=== PATIENT | male | born 1965 | race Caucasian/White ===

== ENCOUNTER 2019-05-09 07:15 | Inpatient (IN) | payer MEDICARE, MEDICAID ==
[~2019-05-09 07:15] MED LIST: Acetaminophen 500 MG Tab PO ONE; Gabapentin 300 MG Cap PO ONE; Scopolamine 1.5 MG Transdermal Patch TRDERM ONE
[2019-05-09] MEDS: Lactated Ringers 1,000 ML IV SCH ×3 (08:45→19:02)
[2019-05-09] MEDS ORDERED: ceFAZolin 1 GM Vial IVPUSH ONE (09:00)
[2019-05-09] MEDS ORDERED: ceFAZolin 2 GM in Sodium Chloride 0.9% 100 ML IV ONE (09:00)
[2019-05-09] MEDS ORDERED: Vancomycin 1 GM SDV ONE (09:58)
--- NOTE | 2019-05-09 11:24 | PCM.OPNOTE ---
- General Post-Op/Procedure Note Date of Surgery/Procedure: 05/09/19 Operative Procedure(s): left tka Pre Op Diagnosis: left knee primary oa Post-Op Diagnosis: Same Anesthesia Technique: Combo Spinal/Epidural Primary Surgeon: Arron Santizo [employer]s Law Professor: Sherri Santos EBL in mLs: 500 Complications: None Condition: Good
[2019-05-09] MEDS: Ropivacaine 49.25 ML, Ketorolac 30 MG, EPINEPHrine 0.5 MG, cloNIDine 80 MCG, Sodium Chl... INJECT ONE ×10 (11:39→11:42)
[2019-05-09] MEDS: Tranexamic Acid 3,000 MG, Sodium Chloride 0.9% 100 ML IRR ONE ×4 (11:43→11:44)
[2019-05-09] MEDS ORDERED: Naloxone 0.4 MG/ML SDV IVPUSH PRN (11:44)
[2019-05-09] MEDS ORDERED: diphenhydrAMINE 50 MG/ML SDV IVPUSH PRN (11:44)
[2019-05-09] MEDS ORDERED: Docusate Sodium 100 MG Cap PO PRN (11:44)
[2019-05-09] MEDS ORDERED: Magnesium Hydroxide 400 MG/5 ML Susp 30 ML Cup PO PRN (11:44)
[2019-05-09] MEDS ORDERED: Sodium Chloride 0.9% 10 ML Syringe FLUSH PRN (11:44)
[2019-05-09] MEDS ORDERED: Bisacodyl 5 MG Tab PO PRN (11:44)
[2019-05-09] MEDS ORDERED: Sennosides 8.6 MG Tab PO PRN (11:44)
[2019-05-09] MEDS ORDERED: Lactated Ringers 1,000 ML IV SCH (11:45)
--- NOTE | 2019-05-09 13:03 | PCM.CONS ---
H&P History of Present Illness - General Date of Service: 05/09/19 Admit Problem/Dx: Admission Diagnosis/Problem Admission Diagnosis/Problem Knee joint operation Source of Information: Patient, Old Records History Limitations: Reports: No Limitations - History of Present Illness Initial Comments - Free Text/Narative: This is a 53-year-old male patient that Dr. Santizo wanted a consultation regards to his chronic medical problems. He has many medical problems including history of alcohol dependence, borderline personality, cannabis abuse, smoking, asthma, hypertension, A. fib are the most critical once. Patient had a left TKA today. He has no concerns. He says his been sober for 2 months currently but he continues to smoke. He denies any fevers, chills, chest pain, shortness of breath, palpitations. He's had suicidal attempts in the past but he says he stable this time on his psych medicines. He does see psychiatry. JOSH KNEE Pain Score (Numeric/FACES): 3 - Related Data Allergies/Adverse Reactions: Allergies Allergy/AdvReac Type Severity Reaction Status Date / Time No Known Allergies Allergy Verified 05/09/19 07:47 Home Medications: Home Meds Acetaminophen [Tylenol Arthritis] 650 mg PO QID 05/08/19 [History] Budesonide/Formoterol Fumarate [Symbicort 160-4.5 Mcg Inhaler] 2 puff INH DAILY 05/08/19 [History] Cholecalciferol (Vitamin D3) [Vitamin D3] 4,000 unit PO DAILY 05/08/19 [History] Gemfibrozil [Lopid] 600 mg PO DAILY 05/08/19 [History] Glucosamine/Chondro Edge A [Glucosamine-Chondroitin Tab] 1 each PO BID 05/08/19 [ History] Levothyroxine 25 mcg PO ACBREAKFAST 05/08/19 [History] Methotrexate 20 mg PO WE 05/08/19 [History] Metoprolol Succinate [Toprol XL] 25 mg PO DAILY 05/08/19 [History] Nicotine [Nicoderm CQ] 42 mg TD DAILY 05/08/19 [History] Omeprazole 40 mg PO DAILY 05/08/19 [History] QUEtiapine [SEROquel] 100 mg PO TID 05/08/19 [History] Sertraline [Zoloft] 200 mg PO DAILY 05/08/19 [History] Tiotropium [Spiriva] 18 mcg INH DAILY 05/08/19 [History] Vitamin B Complex [B Complex] 1 each PO DAILY 05/08/19 [History] Zolpidem Tartrate [Ambien] 10 mg PO BEDTIME 05/08/19 [History] atoMOXetine [Strattera] 60 mg PO DAILY 05/08/19 [History] rOPINIRole [Requip] 1 mg PO BEDTIME 05/08/19 [History] Past Medical History Cardiovascular History: Reports: Afib, Hypertension Other Cardiovascular History: CARDIOVERSION Respiratory History: Reports: Asthma Gastrointestinal History: Reports: GERD Musculoskeletal History: Reports: Arthritis Psychiatric History: Reports: Addiction, Depression Other Psychiatric History: ALCOHOL ABUSE, ALCOHOL WITHDRAWAL, CANNABIS ABUSE Endocrine/Metabolic History: Reports: Hypokalemia, Hypomagnesemia, Hypothyroidism Other Endocrine/Metabolic History: HYPOPHOSPHATEMIA Social & Family History - Tobacco Use Smoking Status *Q: Current Every Day Smoker Years of Tobacco use: 47 Packs/Tins Daily: 0.5 - Caffeine Use Caffeine Use: Reports: Coffee, Tea - Recreational Drug Use Recreational Drug Use: Yes Recreational Drug Type: Reports: Marijuana/Hashish Recreational Drug Use Frequency: Weekly Recreational Drug Last Use: LAST WEEK H&P Review of Systems - Review of Systems: Review Of Systems: See Below General: Reports: No Symptoms HEENT: Reports: No Symptoms Pulmonary: Reports: No Symptoms Cardiovascular: Reports: No Symptoms Gastrointestinal: Reports: No Symptoms Genitourinary: Reports: No Symptoms Musculoskeletal: Reports: Joint Pain Skin: Reports: No Symptoms Psychiatric: Reports: No Symptoms Neurological: Reports: No Symptoms Hematologic/Lymphatic: Reports: No Symptoms Immunologic: Reports: No Symptoms Exam - Exam Exam: See Below - Vital Signs Vital Signs: Last Vital Signs Temp 98.7 F 05/09/19 11:28 Pulse 92 05/09/19 11:56 Resp 17 05/09/19 11:56 BP 98/62 05/09/19 11:56 Pulse Ox 95 05/09/19 11:56 Weight: 154 lb 1.65 oz - Exam General: Alert, Oriented, Cooperative HEENT: Hearing Intact, Posterior Pharynx Clear, TMs Clear Neck: Supple, Trachea Midline, 2 Lungs: Clear to Auscultation, Normal Respiratory Effort. No: Crackles, Rales, Rhonchi Cardiovascular: Regular Rate, Regular Rhythm. No: Systolic Murmur GI/Abdominal Exam: Normal Bowel Sounds, Soft, Non-Tender, No Organomegaly, No Distention, No Abnormal Bruit, No Mass Extremities: No Pedal Edema Skin: Warm, Dry, Intact Neurological: Normal Speech, Normal Tone Neuro Extensive - Mental Status: Alert, Oriented x3, Normal Mood/Affect, Normal Cognition, Memory Intact Psychiatric: Alert, Normal Affect, Normal Mood - Patient Data Lab Results Last 24 hrs: Laboratory Results - last 24 hr 05/09/19 05/09/19 Range/Units 07:50 07:50 PT 9.7 (8.7-11.1) INR 1.00 (0.89-1.13) APTT 24.5 (24.4-33.2) SECONDS Blood Type B POSITIVE Gel Antibody Screen Negative Sepsis Event Note - Focused Exam Vital Signs: Vital Signs Temp Temp Pulse Resp BP BP BP 05/09/19 11:56 92 17 98/62 05/09/19 11:50 72 14 99/72 05/09/19 11:45 93 16 92/75 05/09/19 11:42 95/73 05/09/19 11:40 99 18 95/05/09/19 11:39 95/73 05/09/19 11:35 97 12 93/70 93/70 05/09/19 11:28 98.7 F 105 H 13 93/64 05/09/19 08:02 99.0 F 60 16 135/85 Pulse Ox 05/09/19 11:56 95 05/09/19 11:50 95 05/09/19 11:45 95 05/09/19 11:42 05/09/19 11:40 96 05/09/19 11:39 05/09/19 11:35 95 05/09/19 11:28 95 05/09/19 08:02 97 Date Exam was Performed: 05/09/19 Time Exam was Performed: 12:58 Consult PN Assessment/Plan (1) S/P total knee arthroplasty SNOMED Code(s): 3782720650169, 119507315, 9218733305701 Code(s): Z96.659 - PRESENCE OF UNSPECIFIED ARTIFICIAL KNEE JOINT Current Visit: Yes (2) Atrial fibrillation SNOMED Code(s): 01464580 Code(s): I48.91 - UNSPECIFIED ATRIAL FIBRILLATION Current Visit: Yes (3) Hypertension SNOMED Code(s): 53055601 Code(s): I10 - ESSENTIAL (PRIMARY) HYPERTENSION Current Visit: Yes (4) History of alcohol dependence SNOMED Code(s): 255070081 Code(s): F10.21 - ALCOHOL DEPENDENCE, IN REMISSION Current Visit: Yes (5) Depression SNOMED Code(s): 85309604 Code(s): F32.9 - MAJOR DEPRESSIVE DISORDER, SINGLE EPISODE, UNSPECIFIED Current Visit: Yes (6) Asthma SNOMED Code(s): 225376745 Code(s): J45.909 - UNSPECIFIED ASTHMA, UNCOMPLICATED Current Visit: Yes Problem List Initiated/Reviewed/Updated: Yes Plan: 1. I will follow along and watch his blood pressure, asthma, A. fib and depression. 2. Psych medications are only ordered which is a good thing. 3. Incentive spirometry and good pulmonary toilet. 4. Continue his antihypertensive medications. 5. Patient states she's been sober for 4 months. But we'll still watch for any signs of withdrawal.
--- NOTE | 2019-05-09 13:13 | OR ---
DATE OF OPERATION: 05/09/2019 SURGEON: Arron Santizo DO PREOPERATIVE DIAGNOSIS: Left knee primary osteoarthritis. POSTOPERATIVE DIAGNOSIS: Left knee primary osteoarthritis. PROCEDURE: Left knee total knee arthroplasty. HVAC MAINTENANCE TECHNICIAN: Sherri Santos NP. Nurse practitioner, Sherri Santos NP, played an essential role in assisting in this case, helping to position the patient, retract structures as needed, as well as suturing and cutting sutures as indicated. Her presence improved patient's safety and decreased operative time. ANESTHESIA: Spinal plus conscious sedation. FLUID: Lactated Ringer solution. ESTIMATED BLOOD LOSS: 500 mL. COMPLICATIONS: None. SPECIMEN: None. DISCHARGE DISPOSITION: Stable to PACU. INSTRUMENTATION: DePuy size 7 femur; size 7 tibia; size 7, 5 mm polyethylene tibial insert; and 38 mm polyethylene patella. HISTORY AND INDICATIONS FOR THE PROCEDURE: The patient was seen preoperatively in [place]. He had failed years of nonoperative treatment and was in extreme pain. Preoperative imaging confirmed the above-mentioned diagnosis. Risks and benefits of procedure explained to the patient. Informed consent was obtained. DETAILS OF PROCEDURE: The patient was seen preoperatively by myself and the Anesthesia staff in the preoperative holding area where the operative site was marked. He was brought to the operative suite by Anesthesia staff where a spinal sedation was administered plus conscious sedation. All extremities were found to be well padded. A well-padded tourniquet was placed onto his left thigh. The left lower extremity was then prepped and draped in a sterile manner. Time-out was called identifying the correct patient, correct procedure, and the correct site and antibiotics had begun within appropriate period of time. The left lower extremity was exsanguinated. Tourniquet was raised to 250 mmHg and taken down at 41 minutes during cementing. The midline incision was made from tibial tubercle to 3 fingerbreadths proximal to the patella. The medial parapatellar arthrotomy was then made. The medial proximal tibia was exposed using Bovie electrocautery. Hemostasis was obtained using Bovie electrocautery during the case. A full synovectomy was performed. The patella was everted and the knee flexed. We then removed any infrapatellar fat pad remaining and then made two perpendicular saw cuts along the patella and this measured a 38 in extension and then we did 3 lug holes and then placed the patella trial. We then flexed the knee again and then reamed the distal femur and then put an intramedullary medullary guide in a 3 degree valgus, 9 mm distal cut, pinned this in place and then made our distal cut to remove the guide. I then used the posterior condylar guide with the knee hyperflexed. This measured a 7. I pinned this in place, removed the guide, and then put the chamfer block over my pins and held it in place with 2 extra threaded pins. We then made our anterior- posterior chamfer cuts and then removed our chamfer block. I then used my notch guide anteriorly and then used a rasp to conform the femur. I then removed the anterior portion of the medial and lateral meniscus and the anterior cruciate ligament, and then using a posterior blunt Hohmann and 2 sharp Hohmann to protect the medial collateral ligaments, anteriorized the tibia, and then used an extramedullary guide in line with the tibial spine and second metatarsal for my tibial cut. I pinned this in place and then made my proximal tibial cut. I then removed the bone and then removed my guide. I then used a laminar collections attorney in flexion and then removed the posterior portion of the medial and lateral meniscus as well as posterior osteophytes. After this had been accomplished, we then anteriorized the tibia again and protected all our structures with Hohmann and placed a 7 baseplate on. We placed the tower on and then reamed and tamped the baseplate into place. I then placed my femur and then drilled the lugs. I then inserted a size 7, 5 mm polyethylene trial. This provided excellent stability throughout range of motion with no mid flexion instability. We then removed all of our components, copiously irrigated with saline, dried with laps and then cemented our components in place in full extension with size 7, 5 mm polyethylene trial in slightly internal rotation. It was obvious that this patient was going to bleed. I did expect this and this was entirely all small bleeders. His platelets were good as well as hemoglobin, but as he does have a history of long-term alcoholism and I believe this may have contributed to the bleeding. I packed this with laps a few times and then applied Avitene which did slow the bleeding significantly, so I applied FloSeal to the back and then 4 packets of Avitene and then compressed this for 5 minutes with sterile Antoni wrap. This significantly decreased the bleeding. I bovied the posterior medial and posterior lateral corner where there are typically more bleeding. I then removed any extra cement and then placed my final polyethylene size 7, 5 mm in the baseplate. This provided excellent range of motion and stability. I then irrigated again with pulse lavage irrigation and inspected for any bleeders. Then, I applied 2 packets of Avitene to the posterior lateral corners and then closed the parapatellar arthrotomy with two #5 Ethibond [id number] sutures followed by #2 Stratafix closure in a watertight manner. I then irrigated again with Betadine infused irrigation and then applied 1 g of vancomycin subcutaneously and then used 0 Stratafix to close the subcutaneous layer. We then applied skin ankur. We then applied a dressing, which was a Betadine-soaked Adaptic, fluffs, ABD, and tightly wrapped Antoni wrap. The patient was allowed to awaken from conscious sedation and taken to the PACU in stable condition. /[id number] 1302 BS/MODL
[2019-05-09] MEDS ORDERED: Phenylephrine 1% 10 MG/ML SDV IV ONE ×2 (13:14→13:55)
[2019-05-09] MEDS ORDERED: Sodium Chloride 0.9% 500 ML IV SCH (13:15)
[2019-05-09] MEDS ORDERED: Lactated Ringers 500 ML IV SCH (13:30)
[2019-05-09] MEDS: Nicotine 21 MG/24 Hr Patch TOP SCH (13:37)
[2019-05-09] MEDS: Acetaminophen 650 MG Tab.ER PO SCH ×3 (13:40→20:37)
[2019-05-09] MEDS: QUEtiapine 100 MG Tab PO SCH ×2 (13:50→20:36)
[2019-05-09] MEDS ORDERED: Ketamine 500 mg/10 ML MDV IV ONE (13:55)
[2019-05-09] MEDS ORDERED: Propofol 200 MG/20 ML SDV IV ONE (13:55)
[2019-05-09] MEDS ORDERED: ePHEDrine 50 MG/ML SDV IV ONE (13:55)
[2019-05-09] MEDS ORDERED: Lactated Ringers 1,000 ML IV ONE (13:55)
[2019-05-09] MEDS ORDERED: Midazolam 1 MG/ML 2 ML SDV IV ONE (13:55)
[2019-05-09] MEDS ORDERED: Ropivacaine 0.5% 5 MG/ML 20 ML SDV INJECT ONE (13:55)
--- NOTE | 2019-05-09 14:54 | CR ---
INDICATION: Post-op total left arthroplasty. LEFT KNEE: Frontal and lateral views of the left knee were obtained 05/09/19 - no comparisons available at time of dictation. Metallic clips are noted anteriorly for skin closure. Total knee arthroplasty components appear to be in good position and alignment, without evidence of a complicating process. MTDD
--- NOTE | 2019-05-09 14:56 | US ---
INDICATION: Left adductor nerve block. ULTRASOUND/RFA GUIDANCE: 2-D real-time ultrasonic imaging was utilized for left adductor nerve block placement. [facility]
[2019-05-09] MEDS: Acetaminophen/oxyCODONE 325-5 MG Tab PO PRN ×2 (15:50→20:46)
[2019-05-09] MEDS: Morphine 2 MG/ML SYRINGE IVPUSH PRN (19:07)
[2019-05-09] MEDS: rOPINIRole 1 MG Tab PO SCH (20:35)
[2019-05-09] MEDS: Zolpidem 5 MG Tab PO PRN (20:45)
[2019-05-10] MEDS: Acetaminophen/oxyCODONE 325-5 MG Tab PO PRN ×6 (00:44→21:43)
[2019-05-10] MEDS: traMADol 50 MG Tab PO PRN (02:06)
[2019-05-10] MEDS: Morphine 2 MG/ML SYRINGE IVPUSH PRN ×3 (03:08→16:58)
[2019-05-10] MEDS ORDERED: Methotrexate 2.5 MG Tab PO SCH (08:00)
--- NOTE | 2019-05-10 08:12 | PCM.PN ---
- General Info Date of Service: 05/10/19 Admission Dx/Problem (Free Text): Patient states that he coughs a little bit this morning. He always does after he is a cigarette. He says his left knee is hurting. He has some numbness the left tibia area which is new. Nice fevers or chills. - Patient Data Vitals - Most Recent: Last Vital Signs Temp 99.3 F 05/10/19 05:00 Pulse 106 H 05/10/19 05:00 Resp 20 05/10/19 05:00 BP 111/76 05/10/19 05:00 Pulse Ox 97 05/10/19 05:00 Weight - Most Recent: 154 lb 1.65 oz I&O - Last 24 Hours: Intake & Output 05/09/19 05/10/19 05/10/19 22:59 06:59 14:59 Intake Total 2309 1272 Output Total 450 200 Balance 1859 1072 Lab Results Last 24 Hours: Laboratory Results - last 24 hr 05/09/19 05/09/19 05/10/19 Range/Units 07:50 07:50 06:16 WBC (4.5-12.0) X10-3/uL RBC (4.30-5.75) x10(6)uL Hgb (13.5-17.8) g/dL Hct (30.0-51.3) % MCV (80-96) fL MCH (27.7-33.6) pg MCHC (32.2-35.4) g/dL RDW (11.5-15.5) % Plt Count (125-369) X10(3)uL MPV (7.4-10.4) fL Neut % (Auto) (46-82) % Lymph % (Auto) (13-37) % [place] % (Auto) (4-12) % Eos % (Auto) (1.0-5.0) % Baso % (Auto) (0-2) % Neut # (Auto) (1.6-8.3) # Lymph # (Auto) (0.6-5.0) # [place] # (Auto) (0.0-1.3) # Eos # (Auto) (0.0-0.8) # Baso # (Auto) (0.0-0.2) # PT 9.7 10.5 (8.7-11.1) INR 1.00 1.08 (0.89-1.13) APTT 24.5 24.6 (24.4-33.2) SECONDS Sodium (135-145) mmol/L Potassium (3.5-5.3) mmol/L Chloride (100-110) mmol/L Carbon Dioxide (21-32) mmol/L BUN (7-18) mg/dL Creatinine (0.70-1.30) mg/dL Est Cr Clr Drug Dosing mL/min Estimated GFR (MDRD) (>60) BUN/Creatinine Ratio (9-20) Glucose (80-116) mg/dL Calcium (8.6-10.2) mg/dL Total Bilirubin (0.1-1.3) mg/dL AST (5-25) IU/L ALT (12-36) U/L Alkaline Phosphatase (56-112) IU/L Total Protein (6.0-8.0) g/dL Albumin (3.5-5.2) g/dL Globulin g/dL Albumin/Globulin Ratio Blood Type B POSITIVE Gel Antibody Screen Negative 05/10/19 05/10/19 Range/Units 06:16 06:16 WBC 8.6 (4.5-12.0) X10-3/uL RBC 2.78 L (4.30-5.75) x10(6)uL Hgb 7.7 L (13.5-17.8) g/dL Hct 23.8 L (30.0-51.3) % MCV 85.7 (80-96) fL MCH 27.8 (27.7-33.6) pg MCHC 32.5 (32.2-35.4) g/dL RDW 18.2 H (11.5-15.5) % Plt Count 168 (125-369) X10(3)uL MPV 8.4 (7.4-10.4) fL Neut % (Auto) 73.7 (46-82) % Lymph % (Auto) 16.1 (13-37) % [place] % (Auto) 8.1 (4-12) % Eos % (Auto) 2 (1.0-5.0) % Baso % (Auto) 0 (0-2) % Neut # (Auto) 6.4 (1.6-8.3) # Lymph # (Auto) 1.4 (0.6-5.0) # [place] # (Auto) 0.7 (0.0-1.3) # Eos # (Auto) 0.1 (0.0-0.8) # Baso # (Auto) 0.0 (0.0-0.2) # PT (8.7-11.1) INR (0.89-1.13) APTT (24.4-33.2) SECONDS Sodium 141 (135-145) mmol/L Potassium 4.0 (3.5-5.3) mmol/L Chloride 109 (100-110) mmol/L Carbon Dioxide 27 (21-32) mmol/L BUN 16 (7-18) mg/dL Creatinine 0.7 (0.70-1.30) mg/dL Est Cr Clr Drug Dosing 115.36 mL/min Estimated GFR (MDRD) > 60 (>60) BUN/Creatinine Ratio 22.9 H (9-20) Glucose 111 (80-116) mg/dL Calcium 8.3 L (8.6-10.2) mg/dL Total Bilirubin 0.3 (0.1-1.3) mg/dL AST 19 (5-25) IU/L ALT 15 (12-36) U/L Alkaline Phosphatase 74 (56-112) IU/L Total Protein 5.3 L (6.0-8.0) g/dL Albumin 2.7 L (3.5-5.2) g/dL Globulin 2.6 g/dL Albumin/Globulin Ratio 1.0 Blood Type Gel Antibody Screen Med Orders - Current: Current Medications Acetaminophen (Tylenol Arthritis Pain) 650 mg PO QID [facility] Last Admin: 05/09/19 20:37 Dose: 650 mg Aspirin (Ecotrin) 325 mg PO DAILY [facility] Bisacodyl (Dulcolax) 10 mg PO DAILY PRN PRN Reason: Constipation Cholecalciferol (Vitamin D3) 100 mcg PO DAILY [facility] Diazepam (Valium) 5 mg IVPUSH Q6H PRN PRN Reason: Spasms Diphenhydramine HCl (Benadryl) 25 mg IVPUSH Q4H PRN PRN Reason: Itching Docusate Sodium (Colace) 100 mg PO BID PRN PRN Reason: Constipation Gemfibrozil (Lopid) 600 mg PO DAILY [facility] Glucosamine/Chondroitin (Glucosamine-Chondroitin 500-400 Capsule) 1 cap PO BID [facility] Lactated Ringer's (Ringers, Lactated) 1,000 mls @ 125 mls/hr IV ASDIRECTED [facility] Last Admin: 05/09/19 19:02 Dose: 125 mls/hr Lactated Ringer's (Ringers, Lactated) 1,000 mls @ 125 mls/hr IV ASDIRECTED [facility] Last Admin: 05/10/19 02:34 Dose: 125 mls/hr Lactated Ringer's (Ringers, Lactated) 500 mls @ 250 mls/hr IV BOLUS [facility] Levothyroxine Sodium (Levothyroxine) 25 mcg PO ACBREAKFAST [facility] Magnesium Hydroxide (Milk Of Magnesia) 30 ml PO BID PRN PRN Reason: Constipation Methotrexate (Methotrexate) 20 mg PO WE [facility] Metoprolol Succinate (Toprol Xl) 25 mg PO DAILY [facility] Mometasone Furoate/Formoterol Fumar (Dulera 200-5 Mcg) 2 puff IH DAILY [facility] Morphine Sulfate (Morphine) 2 mg IVPUSH Q2H PRN PRN Reason: Breakthrough Pain Last Admin: 05/10/19 03:08 Dose: 2 mg Multivitamins (Total B With C) 1 each PO DAILY [facility] Naloxone HCl (Narcan) 0.1 mg IVPUSH ONETIME PRN PRN Reason: Oversedation Nicotine (Habitrol) 21 mg TOP DAILY [facility] Last Admin: 05/09/19 13:37 Dose: 21 mg Non-Formulary Medication (Atomoxetine [Strattera]) 60 mg PO DAILY [facility] Ondansetron HCl (Zofran) 4 mg IVPUSH Q4H PRN PRN Reason: Nausea/Vomiting Oxycodone/Acetaminophen (Percocet 325-5 Mg) 2 tab PO Q4H PRN PRN Reason: Pain (moderate 4-6) Last Admin: 05/10/19 04:55 Dose: 2 tab Pantoprazole Sodium (Protonix) 40 mg PO DAILY [facility] Quetiapine Fumarate (Seroquel) 100 mg PO TID [facility] Last Admin: 05/09/19 20:36 Dose: 100 mg Ropinirole HCl (Requip) 1 mg PO BEDTIME [facility] Last Admin: 05/09/19 20:35 Dose: 1 mg Senna (Senna) 8.6 mg PO BID PRN PRN Reason: Constipation Sertraline HCl (Zoloft) 200 mg PO DAILY [facility] Sodium Chloride (Saline Flush) 10 ml FLUSH ASDIRECTED PRN PRN Reason: Keep Vein Open Sodium Chloride (Saline Flush) 10 ml FLUSH ASDIRECTED PRN PRN Reason: Keep Vein Open Tiotropium [place] (Spiriva Handihaler) 0 mcg INH DAILY [facility]OMY Tramadol HCl (Ultram) 100 mg PO Q6H PRN PRN Reason: Pain (mild 1-3) Last Admin: 05/10/19 02:06 Dose: 100 mg Zolpidem Tartrate (Ambien) 5 mg PO BEDTIME PRN PRN Reason: Sleep Last Admin: 05/09/19 20:45 Dose: 5 mg Discontinued Medications Acetaminophen (Tylenol Extra Strength) 1,000 mg PO ONETIME ONE Stop: 05/09/19 07:16 Last Admin: 05/09/19 08:36 Dose: 1,000 mg Cefazolin Sodium (Ancef) 1 gm IVPUSH ONETIME ONE Stop: 05/09/19 09:01 Last Admin: 05/09/19 08:49 Dose: 1 gm Ropivacaine 49.25 ml/Ketorolac Tromethamine 30 mg/Epinephrine HCl 0.5 mg/ Clonidine HCl 80 mcg/ Sodium Chloride 48.45 ml 0 ml INJECT ASDIRECTED ONE Stop: 05/09/19 09:01 Last Admin: 05/09/19 11:42 Dose: 100 syringe Tranexamic Acid 3,000 mg/ (Sodium Chloride 100 ml) 0 mg IRR ONETIME ONE Stop: 05/09/19 09:01 Last Admin: 05/09/19 11:44 Dose: 100 irr Gabapentin (Neurontin) 300 mg PO ONETIME ONE Stop: 05/09/19 07:16 Last Admin: 05/09/19 08:36 Dose: 300 mg Scopolamine (Transderm-Scop) 1.5 mg TRDERM ONETIME ONE Stop: 05/09/19 07:16 Last Admin: 05/09/19 08:36 Dose: 1.5 mg Vancomycin HCl (Vancomycin) 1 gm .XX .STK-MED ONE Stop: 05/09/19 09:59 Last Admin: 05/09/19 09:58 Dose: 1 gm - Exam General: Alert, Oriented, Cooperative Lungs: Clear to Auscultation, Normal Respiratory Effort Cardiovascular: Regular Rate, Regular Rhythm, No Murmurs Sepsis Event Note - Evaluation Sepsis Screening Result: No Definite Risk - Focused Exam Vital Signs: Vital Signs Temp Pulse Resp BP Pulse Ox 05/10/19 05:00 99.3 F 106 H 20 111/76 97 05/10/19 01:00 99.1 F 78 20 93/61 98 05/09/19 22:30 98.6 F 80 18 106/63 97 Date Exam was Performed: 05/10/19 Time Exam was Performed: 08:10 - Problem List & Annotations (1) S/P total knee arthroplasty SNOMED Code(s): 0770357758508, 890783825, 2177421712589 Code(s): Z96.659 - PRESENCE OF UNSPECIFIED ARTIFICIAL KNEE JOINT Status: Acute Current Visit: Yes (2) Atrial fibrillation SNOMED Code(s): 11431891 Code(s): I48.91 - UNSPECIFIED ATRIAL FIBRILLATION Status: Acute Current Visit: Yes (3) Hypertension SNOMED Code(s): 37228681 Code(s): I10 - ESSENTIAL (PRIMARY) HYPERTENSION Status: Acute Current Visit: Yes (4) History of alcohol dependence SNOMED Code(s): 578672230 Code(s): F10.21 - ALCOHOL DEPENDENCE, IN REMISSION Status: Acute Current Visit: Yes (5) Depression SNOMED Code(s): 27686128 Code(s): F32.9 - MAJOR DEPRESSIVE DISORDER, SINGLE EPISODE, UNSPECIFIED Status: Acute Current Visit: Yes (6) Asthma SNOMED Code(s): 342793307 Code(s): J45.909 - UNSPECIFIED ASTHMA, UNCOMPLICATED Status: Acute Current Visit: Yes - Problem List Review Problem List Initiated/Reviewed/Updated: Yes - My Orders Last 24 Hours: My Active Orders 05/09/19 13:30 Lactated Ringers [Ringers, Lactated] 500 ml IV BOLUS - Assessment Assessment:: 1. From a cardiac and pulmonary standpoint the patient is doing well. 2. Continue follow along until the patient is discharged. 3. I told the patient to discuss any pain and numbness with Dr. Santizo his orthopedic surgeon.
[2019-05-10] MEDS: Levothyroxine 25 MCG Tab PO SCH (08:47)
[2019-05-10] MEDS: Gemfibrozil 600 MG Tab PO SCH (08:48)
[2019-05-10] MEDS: Pantoprazole 40 MG Tab.CR PO SCH (08:48)
[2019-05-10] MEDS: Chondroitin/Glucosamine Cap PO SCH ×2 (08:48→21:38)
[2019-05-10] MEDS: Sertraline 100 MG Tab PO SCH (08:48)
[2019-05-10] MEDS: QUEtiapine 100 MG Tab PO SCH ×3 (08:48→21:42)
[2019-05-10] MEDS: Aspirin 325 MG Tab.EC PO SCH (08:48)
[2019-05-10] MEDS: Cholecalciferol (Vitamin D3) 25 MCG Tab PO SCH (08:49)
[2019-05-10] MEDS: Nicotine 21 MG/24 Hr Patch TOP SCH (08:49)
[2019-05-10] MEDS: Acetaminophen 650 MG Tab.ER PO SCH ×4 (08:49→21:42)
[2019-05-10] MEDS: Formoterol/Mometasone 200-5 MCG 8.8 GM Inhaler IH SCH (08:49)
[2019-05-10] MEDS: Tiotropium Inhaler 18 MCG Inhalation Powder Cap Kit of 5 INH SCH (08:50)
[2019-05-10] MEDS: Metoprolol Succinate 25 MG Tab.ER PO SCH (08:50)
[2019-05-10] MEDS: Vitamin B Complex with Vitamin C Tab PO SCH (08:50)
[2019-05-10] MEDS ORDERED: Non-Formulary Medication 1 Each (Omeprazole [Omeprazole] 40 MG) PO SCH (09:00)
[2019-05-10] MEDS ORDERED: Non-Formulary Medication 1 Each (Budesonide/Formoterol Fumarate [Symbicort 160-4.5 Mcg Inh INH SCH (09:00)
[2019-05-10] MEDS: Sodium Chloride 0.9% 10 ML Syringe FLUSH PRN ×2 (10:15→11:25)
--- NOTE | 2019-05-10 10:29 | PCM.PN ---
- General Info Date of Service: 05/10/19 Admission Dx/Problem (Free Text): Patient states that he coughs a little bit this morning. He always does after he is a cigarette. He says his left knee is hurting. He has some numbness the left tibia area which is new. Nice fevers or chills. Subjective Update: Patient states his pain has not been well controlled so far. He has been up walking and thinks that has been going well. Has no other complaints today. Pain Score: 7 - Review of Systems General: Reports: No Symptoms Pulmonary: Reports: No Symptoms Cardiovascular: Reports: No Symptoms Gastrointestinal: Reports: No Symptoms Skin: Reports: No Symptoms Neurological: Reports: Numbness (Decreased sensation to soft touch along the anterior lower left leg (mckenna), is able to feel sharp stimuli to this area) Psychiatric: Reports: No Symptoms - Patient Data Vitals - Most Recent: Last Vital Signs Temp 37.4 C 05/10/19 05:00 Pulse 92 05/10/19 08:50 Resp 20 05/10/19 05:00 BP 117/73 05/10/19 08:50 Pulse Ox 97 05/10/19 05:00 Weight - Most Recent: 69.9 kg I&O - Last 24 Hours: Intake & Output 05/09/19 05/10/19 05/10/19 22:59 06:59 14:59 Intake Total 2309 1272 Output Total 450 200 Balance 1859 1072 Lab Results Last 24 Hours: Laboratory Results - last 24 hr 05/10/19 05/10/19 05/10/19 Range/Units 06:16 06:16 06:16 WBC 8.6 (4.5-12.0) X10-3/uL RBC 2.78 L (4.30-5.75) x10(6)uL Hgb 7.7 L (13.5-17.8) g/dL Hct 23.8 L (30.0-51.3) % MCV 85.7 (80-96) fL MCH 27.8 (27.7-33.6) pg MCHC 32.5 (32.2-35.4) g/dL RDW 18.2 H (11.5-15.5) % Plt Count 168 (125-369) X10(3)uL MPV 8.4 (7.4-10.4) fL Neut % (Auto) 73.7 (46-82) % Lymph % (Auto) 16.1 (13-37) % Vigo % (Auto) 8.1 (4-12) % Eos % (Auto) 2 (1.0-5.0) % Baso % (Auto) 0 (0-2) % Neut # (Auto) 6.4 (1.6-8.3) # Lymph # (Auto) 1.4 (0.6-5.0) # Vigo # (Auto) 0.7 (0.0-1.3) # Eos # (Auto) 0.1 (0.0-0.8) # Baso # (Auto) 0.0 (0.0-0.2) # PT 10.5 (8.7-11.1) INR 1.08 (0.89-1.13) APTT 24.6 (24.4-33.2) SECONDS Sodium 141 (135-145) mmol/L Potassium 4.0 (3.5-5.3) mmol/L Chloride 109 (100-110) mmol/L Carbon Dioxide 27 (21-32) mmol/L BUN 16 (7-18) mg/dL Creatinine 0.7 (0.70-1.30) mg/dL Est Cr Clr Drug Dosing 115.36 mL/min Estimated GFR (MDRD) > 60 (>60) BUN/Creatinine Ratio 22.9 H (9-20) Glucose 111 (80-116) mg/dL Calcium 8.3 L (8.6-10.2) mg/dL Total Bilirubin 0.3 (0.1-1.3) mg/dL AST 19 (5-25) IU/L ALT 15 (12-36) U/L Alkaline Phosphatase 74 (56-112) IU/L Total Protein 5.3 L (6.0-8.0) g/dL Albumin 2.7 L (3.5-5.2) g/dL Globulin 2.6 g/dL Albumin/Globulin Ratio 1.0 Med Orders - Current: Current Medications Acetaminophen (Tylenol Arthritis Pain) 650 mg PO QID PENDING SALE TO [facility] Last Admin: 05/10/19 08:49 Dose: 650 mg Aspirin (Ecotrin) 325 mg PO DAILY PENDING SALE TO [facility] Last Admin: 05/10/19 08:48 Dose: 325 mg Atomoxetine HCl (Strattera) 60 mg PO DAILY PENDING SALE TO [facility] Bisacodyl (Dulcolax) 10 mg PO DAILY PRN PRN Reason: Constipation Cholecalciferol (Vitamin D3) 100 mcg PO DAILY PENDING SALE TO [facility] Last Admin: 05/10/19 08:49 Dose: 100 mcg Diazepam (Valium) 5 mg IVPUSH Q6H PRN PRN Reason: Spasms Diphenhydramine HCl (Benadryl) 25 mg IVPUSH Q4H PRN PRN Reason: Itching Docusate Sodium (Colace) 100 mg PO BID PRN PRN Reason: Constipation Gemfibrozil (Lopid) 600 mg PO DAILY PENDING SALE TO [facility] Last Admin: 05/10/19 08:48 Dose: 600 mg Glucosamine/Chondroitin (Glucosamine-Chondroitin 500-400 Capsule) 1 cap PO BID PENDING SALE TO [facility] Last Admin: 05/10/19 08:48 Dose: 1 cap Lactated Ringer's (Ringers, Lactated) 1,000 mls @ 125 mls/hr IV ASDIRECTED PENDING SALE TO [facility] Last Admin: 05/09/19 19:02 Dose: 125 mls/hr Lactated Ringer's (Ringers, Lactated) 1,000 mls @ 75 mls/hr IV ASDIRECTED PENDING SALE TO [facility] Levothyroxine Sodium (Levothyroxine) 25 mcg PO ACBREAKFAST PENDING SALE TO [facility] Last Admin: 05/10/19 08:47 Dose: 25 mcg Magnesium Hydroxide (Milk Of Magnesia) 30 ml PO BID PRN PRN Reason: Constipation Methotrexate (Methotrexate) 20 mg PO WE PENDING SALE TO [facility] Last Admin: 05/10/19 08:47 Dose: 20 mg Metoprolol Succinate (Toprol Xl) 25 mg PO DAILY PENDING SALE TO [facility] Last Admin: 05/10/19 08:50 Dose: 25 mg Mometasone Furoate/Formoterol Fumar (Dulera 200-5 Mcg) 2 puff IH DAILY PENDING SALE TO [facility] Last Admin: 05/10/19 08:49 Dose: 2 puff Morphine Sulfate (Morphine) 2 mg IVPUSH Q2H PRN PRN Reason: Breakthrough Pain Last Admin: 05/10/19 03:08 Dose: 2 mg Multivitamins (Total B With C) 1 each PO DAILY PENDING SALE TO [facility] Last Admin: 05/10/19 08:50 Dose: 1 each Naloxone HCl (Narcan) 0.1 mg IVPUSH ONETIME PRN PRN Reason: Oversedation Nicotine (Habitrol) 21 mg TOP DAILY PENDING SALE TO [facility] Last Admin: 05/10/19 08:49 Dose: 21 mg Ondansetron HCl (Zofran) 4 mg IVPUSH Q4H PRN PRN Reason: Nausea/Vomiting Oxycodone/Acetaminophen (Percocet 325-5 Mg) 2 tab PO Q4H PRN PRN Reason: Pain (moderate 4-6) Last Admin: 05/10/19 09:10 Dose: 2 tab Pantoprazole Sodium (Protonix) 40 mg PO DAILY PENDING SALE TO [facility] Last Admin: 05/10/19 08:48 Dose: 40 mg Quetiapine Fumarate (Seroquel) 100 mg PO TID PENDING SALE TO [facility] Last Admin: 05/10/19 08:48 Dose: 100 mg Ropinirole HCl (Requip) 1 mg PO BEDTIME PENDING SALE TO [facility] Last Admin: 05/09/19 20:35 Dose: 1 mg Senna (Senna) 8.6 mg PO BID PRN PRN Reason: Constipation Sertraline HCl (Zoloft) 200 mg PO DAILY PENDING SALE TO [facility] Last Admin: 05/10/19 08:48 Dose: 200 mg Sodium Chloride (Saline Flush) 10 ml FLUSH ASDIRECTED PRN PRN Reason: Keep Vein Open Sodium Chloride (Saline Flush) 10 ml FLUSH ASDIRECTED PRN PRN Reason: Keep Vein Open Tiotropium [place] (Spiriva Handihaler) 0 mcg INH DAILY PENDING SALE TO [facility] Last Admin: 05/10/19 08:50 Dose: 1 cap Tramadol HCl (Ultram) 100 mg PO Q6H PRN PRN Reason: Pain (mild 1-3) Last Admin: 05/10/19 02:06 Dose: 100 mg Zolpidem Tartrate (Ambien) 5 mg PO BEDTIME PRN PRN Reason: Sleep Last Admin: 05/09/19 20:45 Dose: 5 mg Discontinued Medications Acetaminophen (Tylenol Extra Strength) 1,000 mg PO ONETIME ONE Stop: 05/09/19 07:16 Last Admin: 05/09/19 08:36 Dose: 1,000 mg Cefazolin Sodium (Ancef) 1 gm IVPUSH ONETIME ONE Stop: 05/09/19 09:01 Last Admin: 05/09/19 08:49 Dose: 1 gm Ropivacaine 49.25 ml/Ketorolac Tromethamine 30 mg/Epinephrine HCl 0.5 mg/ Clonidine HCl 80 mcg/ Sodium Chloride 48.45 ml 0 ml INJECT ASDIRECTED ONE Stop: 05/09/19 09:01 Last Admin: 05/09/19 11:42 Dose: 100 syringe Tranexamic Acid 3,000 mg/ (Sodium Chloride 100 ml) 0 mg IRR ONETIME ONE Stop: 05/09/19 09:01 Last Admin: 05/09/19 11:44 Dose: 100 irr Gabapentin (Neurontin) 300 mg PO ONETIME ONE Stop: 05/09/19 07:16 Last Admin: 05/09/19 08:36 Dose: 300 mg Lactated Ringer's (Ringers, Lactated) 1,000 mls @ 125 mls/hr IV ASDIRECTED NAOMY Last Admin: 05/10/19 02:34 Dose: 125 mls/hr Lactated Ringer's (Ringers, Lactated) 500 mls @ 250 mls/hr IV BOLUS NAOMY Scopolamine (Transderm-Scop) 1.5 mg TRDERM ONETIME ONE Stop: 05/09/19 07:16 Last Admin: 05/09/19 08:36 Dose: 1.5 mg Vancomycin HCl (Vancomycin) 1 gm .XX .STK-MED ONE Stop: 05/09/19 09:59 Last Admin: 05/09/19 09:58 Dose: 1 gm - Exam General: Alert, Oriented, Cooperative, No Acute Distress Lungs: Normal Respiratory Effort Cardiovascular: Regular Rate, Regular Rhythm Extremities: Other (Normal inspection and range of motion to right leg; post-op pain to left knee, tenderness to soft tissue of distal thigh, minimal swelling under MARTHA wrap and moderate drainage. Range of motion and strength to foot and ankle on the left is strong and WNL.) Peripheral Pulses: 1+: Posterior Tibial (L), 2+: Dorsalis Pedis (L) Skin: Warm, Dry, Intact (incision looks good, without erythema or swelling; bloody drainage pattern is mostly from distal aspect of incision) Neurological: Other (sensation altered, but intact to left lower extremity) Psy/Mental Status: Alert, Normal Affect, Normal Mood Sepsis Event Note - Evaluation Sepsis Screening Result: No Definite Risk - Focused Exam Vital Signs: Vital Signs Temp Pulse Pulse Resp BP BP Pulse Ox 05/10/19 08:50 92 117/73 05/10/19 05:00 37.4 C 106 H 20 111/76 97 05/10/19 01:00 37.3 C 78 20 93/61 98 05/09/19 22:30 37.0 C 80 18 106/63 97 Date Exam was Performed: 05/10/19 Time Exam was Performed: 12:25 - Problem List & Annotations (1) S/P total knee arthroplasty SNOMED Code(s): 5314692826301, 839186879, 1442606143052 Code(s): Z96.659 - PRESENCE OF UNSPECIFIED ARTIFICIAL KNEE JOINT Status: Acute Priority: High Current Visit: Yes Onset Date: ~05/09/19 Qualifiers: Laterality: left Qualified Code(s): Z96.652 - Presence of left artificial knee joint - Problem List Review Problem List Initiated/Reviewed/Updated: Yes - My Orders Last 24 Hours: My Active Orders 05/09/19 11:44 Antiembolic Devices [RC] .Routine Acetaminophen/oxyCODONE [Percocet 325-5 MG] 2 tab PO Q4H PRN Docusate Sodium [Colace] 100 mg PO BID PRN Magnesium Hydroxide [Milk of Magnesia] 30 ml PO BID PRN Morphine 2 mg IVPUSH Q2H PRN Naloxone [Narcan] 0.1 mg IVPUSH ONETIME PRN Ondansetron [Zofran] 4 mg IVPUSH Q4H PRN Sennosides [Senna] 8.6 mg PO BID PRN Sodium Chloride 0.9% [Saline Flush] 10 ml FLUSH ASDIRECTED PRN Zolpidem [Ambien] 5 mg PO BEDTIME PRN bisacodyL [Dulcolax] 10 mg PO DAILY PRN diazePAM [Valium] 5 mg IVPUSH Q6H PRN diphenhydrAMINE [Benadryl] 25 mg IVPUSH Q4H PRN traMADol [Ultram] 100 mg PO Q6H PRN 05/09/19 11:45 Patient Status [ADT] Routine Ambulate [RC] ASDIRECTED Head of Bed Elevation [RC] CONTINUOUS Intake and Output [RC] QSHIFT May Shower [RC] ASDIRECTED Neurovascular Check [RC] Q4HR Pneumonia Education [RC] UPON RT Incentive Spirometry [RC] Q1HWA Turn, Cough, Deep Breathe [RC] Q1HWA Up to Chair [RC] TIDMEALS Vital Signs [RC] PER UNIT ROUTINE Wound Care [RC] Q12H Consult to Physician [CONS] Routine Respiratory Care Assess and Treatment [CONS] Routine Convert IV to Saline Lock [OM.PC] PER UNIT ROUTINE DVT/VTE Prophylaxis Reflex [OM.PC] Routine Ice Therapy [OM.PC] PER UNIT ROUTINE Oral Care [OM.PC] BID Sequential Compression Device [OM.PC] Per Unit Routine Weight bearing status [OM.PC] Routine 05/09/19 11:48 Notify Provider Consults [RC] ASDIRECTED VTE/DVT Education [RC] Click to Edit 05/09/19 13:00 Acetaminophen [Tylenol Arthritis Pain] 650 mg PO QID Nicotine [Habitrol] 21 mg TOP DAILY 05/09/19 14:00 QUEtiapine [SEROqueL] 100 mg PO TID 05/09/19 15:00 OT Evaluation and Treatment [CONS] Routine PT Evaluation and Treatment [CONS] Routine 05/09/19 21:00 rOPINIRole [Requip] 1 mg PO BEDTIME 05/10/19 07:30 Levothyroxine 25 mcg PO ACBREAKFAST 05/10/19 08:00 Methotrexate 20 mg PO WE 05/10/19 09:00 Aspirin [Ecotrin] 325 mg PO DAILY Cholecalciferol (Vitamin D3) [Vitamin D3] 100 mcg PO DAILY Chondroitin/Glucosamine [Glucosamine-Chondroitin 500-400 Capsule] 1 cap PO BID Metoprolol Succinate [Toprol XL] 25 mg PO DAILY Mometasone/Formoterol [Dulera 200-5 MCG] 2 puff IH DAILY Pantoprazole [ProTONIX] 40 mg PO DAILY Sertraline [Zoloft] 200 mg PO DAILY Tiotropium [Spiriva HandiHaler] 0 mcg INH DAILY Vitamin B Complex with C [Total B With C] 1 each PO DAILY atoMOXetine [Strattera] 60 mg PO DAILY gemfibroziL [Lopid] 600 mg PO DAILY 05/10/19 10:30 Lactated Ringers @ 75 MLS/HR(1000ml) Lactated Ringers [Ringers, Lactated] 1, 000 ml IV ASDIRECTED 05/10/19 11:45 Convert IV to Saline Lock [OM.PC] PER UNIT ROUTINE Ice Therapy [OM.PC] PER UNIT ROUTINE Oral Care [OM.PC] BID 05/11/19 05:15 CBC WITH AUTO DIFF [HEME] DAILY COMPREHENSIVE METABOLIC PN,CMP [CHEM] DAILY 05/11/19 11:45 Oral Care [OM.PC] BID 05/12/19 05:15 CBC WITH AUTO DIFF [HEME] DAILY COMPREHENSIVE METABOLIC PN,CMP [CHEM] DAILY 05/12/19 11:45 Oral Care [OM.PC] BID 05/13/19 05:15 CBC WITH AUTO DIFF [HEME] DAILY COMPREHENSIVE METABOLIC PN,CMP [CHEM] DAILY 05/13/19 11:45 Oral Care [OM.PC] BID 05/14/19 05:15 CBC WITH AUTO DIFF [HEME] DAILY 05/14/19 11:45 Oral Care [OM.PC] BID 05/15/19 11:45 Oral Care [OM.PC] BID 05/16/19 11:45 Oral Care [OM.PC] BID 05/17/19 11:45 Oral Care [OM.PC] BID 05/18/19 11:45 Oral Care [OM.PC] BID - Assessment Assessment:: 1. From a cardiac and pulmonary standpoint the patient is doing well. 2. Continue follow along until the patient is discharged. 3. I told the patient to discuss any pain and numbness with Dr. Santizo his orthopedic surgeon. - Plan Plan:: Assessment & Plan: 1. Continue to manage pain; added gabapentin and vistaril for treatment of pain and decreased dose of valium to 2mg instead of 5mg. 2. Added iron due to anemia, likely from blood loss during surgery; vitals stable. 3. Plan is to keep patient inpatient status to help him manage his pain and because he is not able to return to his own home at this time and care for himself while he is recovering from his total knee. He requires assistance with treatment of his pain both now as an inpatient and at [facility] facility, as he has a history of substance abuse. He will need skilled nurse care during recovery from his total knee, as he lives alone and does not have anyone to help him at home.
--- NOTE | 2019-05-10 10:43 | ANES ---
DATE OF PROCEDURE: 05/09/2019 REFERRING PHYSICIAN: Arron Santizo DO PATIENT STATUS: A.m. admit. ANESTHESIA PROVIDED: For postop pain control. PROCEDURE PERFORMED: Left adductor canal block. PREOPERATIVE DIAGNOSIS: Left knee osteoarthritis with pain. PROCEDURE PERFORMED TODAY: Left uni-knee arthroplasty. DESCRIPTION OF PROCEDURE: The surgeon and the patient have both requested a peripheral regional anesthesia for postoperative pain control. I did receive consent from the patient for the block, after discussing risks and benefits. He was taken to the postop recovery room after his surgery. Monitors of a non- invasive blood pressure, EKG, and pulse ox were applied. Please refer to nurse's notes for values. The patient did have oxygen at 4 L per nasal cannula during the procedure. The patient had spinal anesthesia for his knee surgery, and this was still in effect during the block with him starting to move feet slightly. His left leg was placed in a frog-leg position. A time-out was performed. A preprocedure ultrasound scan was done, locating the left sartorius muscle and femoral artery. This area was prepped with ChloraPrep swab and was allowed to dry. No local was needed, due to the spinal still in effect. Under direct ultrasound visualization, I advanced a 20-gauge 4-inch Stimuplex Ultra 360 echogenic needle to the proper placement. The needle was placed under the sartorius muscle and into the adductor canal, superior to the left femoral artery. A total of 30 mL of 0.5% Naropin was injected in divided doses with negative aspiration every 5 mL. The needle was removed. The patient had no complaints throughout the procedure and tolerated the procedure well. TIME OF PROCEDURE: From 1134 to 1142. Visited with the patient as leaving recovery room and has no complaints of any knee pain. DOCUMENTATION: Please see the images in Radiology on the PACS system. /[id number] HG/MODL MTDD
[2019-05-10] MEDS: Ondansetron 4 MG/2 ML SDV IVPUSH PRN (11:09)
[2019-05-10] MEDS: hydrOXYzine HCl 25 MG Tab PO SCH ×2 (11:45→18:36)
[2019-05-10] MEDS: Gabapentin 300 MG Cap PO SCH ×2 (13:29→21:40)
[2019-05-10] MEDS: Lactated Ringers 1,000 ML IV SCH (14:00)
[2019-05-10] MEDS: Ferrous Sulfate 325 MG Tab PO SCH (17:41)
[2019-05-10] MEDS: rOPINIRole 1 MG Tab PO SCH (21:40)
[2019-05-10] MEDS: Zolpidem 5 MG Tab PO PRN (21:42)
[2019-05-11] MEDS: Acetaminophen/oxyCODONE 325-5 MG Tab PO PRN ×4 (01:39→20:32)
[2019-05-11] MEDS: Lactated Ringers 1,000 ML IV SCH ×2 (02:22→16:00)
[2019-05-11] MEDS: hydrOXYzine HCl 25 MG Tab PO SCH ×3 (02:33→18:34)
[2019-05-11] MEDS: Ondansetron 4 MG/2 ML SDV IVPUSH PRN (07:39)
[2019-05-11] MEDS: Morphine 2 MG/ML SYRINGE IVPUSH PRN ×3 (07:39→17:40)
[2019-05-11] MEDS: Ferrous Sulfate 325 MG Tab PO SCH (07:42)
[2019-05-11] MEDS: Levothyroxine 25 MCG Tab PO SCH (07:42)
[2019-05-11] MEDS: Acetaminophen 650 MG Tab.ER PO SCH (09:07)
[2019-05-11] MEDS: Sertraline 100 MG Tab PO SCH (09:08)
[2019-05-11] MEDS: Gemfibrozil 600 MG Tab PO SCH (09:08)
[2019-05-11] MEDS: Aspirin 325 MG Tab.EC PO SCH (09:08)
[2019-05-11] MEDS: Chondroitin/Glucosamine Cap PO SCH ×2 (09:09→20:36)
[2019-05-11] MEDS: Pantoprazole 40 MG Tab.CR PO SCH (09:09)
[2019-05-11] MEDS: Vitamin B Complex with Vitamin C Tab PO SCH (09:09)
[2019-05-11] MEDS: Cholecalciferol (Vitamin D3) 25 MCG Tab PO SCH (09:09)
[2019-05-11] MEDS: Metoprolol Succinate 25 MG Tab.ER PO SCH (09:09)
[2019-05-11] MEDS: Formoterol/Mometasone 200-5 MCG 8.8 GM Inhaler IH SCH (09:10)
[2019-05-11] MEDS: QUEtiapine 100 MG Tab PO SCH ×3 (09:10→20:36)
[2019-05-11] MEDS: Nicotine 21 MG/24 Hr Patch TOP SCH (09:11)
[2019-05-11] MEDS: Tiotropium Inhaler 18 MCG Inhalation Powder Cap Kit of 5 INH SCH (09:15)
[2019-05-11] MEDS: Gabapentin 300 MG Cap PO SCH ×3 (09:15→20:39)
[2019-05-11] MEDS ORDERED: Azithromycin 500 MG Tab PO ONE (09:20)
[2019-05-11] MEDS ORDERED: Triamcinolone Acetonide 40 MG/ML 1 ML SDV IM ONE (09:22)
--- NOTE | 2019-05-11 09:25 | PCM.PN ---
- General Info Date of Service: 05/11/19 Admission Dx/Problem (Free Text): Patient states he feels little lightheaded this morning and nauseated. The nurse gave him some Zofran. He wants to lay down in the bed. He has a little cough that's persisting and now he has green phlegm. He has a history of COPD. He says when this happens he normally goes to the clinic as a shot of Kenalog and is better. Feels little short of breath and wheezing. no chest pain - Patient Data Vitals - Most Recent: Last Vital Signs Temp 98.4 F 05/11/19 07:43 Pulse 103 H 05/11/19 09:09 Resp 20 05/11/19 07:43 BP 132/82 05/11/19 09:09 Pulse Ox 98 05/11/19 07:43 Weight - Most Recent: 154 lb 1.65 oz I&O - Last 24 Hours: Intake & Output 05/10/19 05/11/19 05/11/19 22:59 06:59 14:59 Intake Total 558 705 Output Total 1000 700 Balance -442 -700 705 Lab Results Last 24 Hours: Laboratory Results - last 24 hr 05/11/19 05/11/19 Range/Units 06:45 06:45 WBC 9.3 (4.5-12.0) X10-3/uL RBC 2.93 L (4.30-5.75) x10(6)uL Hgb 8.4 L (13.5-17.8) g/dL Hct 25.0 L (30.0-51.3) % MCV 85.4 (80-96) fL MCH 28.7 (27.7-33.6) pg MCHC 33.6 (32.2-35.4) g/dL RDW 17.5 H (11.5-15.5) % Plt Count 195 (125-369) X10(3)uL MPV 7.7 (7.4-10.4) fL Neut % (Auto) 81.8 (46-82) % Lymph % (Auto) 11.7 L (13-37) % [place] % (Auto) 4.7 (4-12) % Eos % (Auto) 2 (1.0-5.0) % Baso % (Auto) 0 (0-2) % Neut # (Auto) 7.7 (1.6-8.3) # Lymph # (Auto) 1.1 (0.6-5.0) # [place] # (Auto) 0.4 (0.0-1.3) # Eos # (Auto) 0.1 (0.0-0.8) # Baso # (Auto) 0.0 (0.0-0.2) # Sodium 141 (135-145) mmol/L Potassium 3.8 (3.5-5.3) mmol/L Chloride 107 (100-110) mmol/L Carbon Dioxide 25 (21-32) mmol/L BUN 8 (7-18) mg/dL Creatinine 0.7 (0.70-1.30) mg/dL Est Cr Clr Drug Dosing 115.36 mL/min Estimated GFR (MDRD) > 60 (>60) BUN/Creatinine Ratio 11.4 (9-20) Glucose 107 (80-116) mg/dL Calcium 8.5 L (8.6-10.2) mg/dL Total Bilirubin 0.6 (0.1-1.3) mg/dL AST 23 D (5-25) IU/L ALT 16 (12-36) U/L Alkaline Phosphatase 77 (56-112) IU/L Total Protein 6.5 (6.0-8.0) g/dL Albumin 3.0 L (3.5-5.2) g/dL Globulin 3.5 g/dL Albumin/Globulin Ratio 0.9 Med Orders - Current: Current Medications Acetaminophen (Tylenol Arthritis Pain) 650 mg PO QID [facility] Last Admin: 05/11/19 09:07 Dose: 650 mg Aspirin (Ecotrin) 325 mg PO DAILY [facility] Last Admin: 05/11/19 09:08 Dose: 325 mg Atomoxetine HCl (Strattera) 60 mg PO DAILY [facility] Last Admin: 05/11/19 09:08 Dose: 60 mg Azithromycin (Zithromax) 500 mg PO ONETIME ONE Stop: 05/11/19 09:21 Azithromycin (Zithromax) 250 mg PO DAILY [facility] Stop: 05/15/19 09:01 Bisacodyl (Dulcolax) 10 mg PO DAILY PRN PRN Reason: Constipation Cholecalciferol (Vitamin D3) 100 mcg PO DAILY [facility] Last Admin: 05/11/19 09:09 Dose: 100 mcg Diazepam (Valium) 2 mg IVPUSH Q6H PRN PRN Reason: Agitation Diphenhydramine HCl (Benadryl) 25 mg IVPUSH Q4H PRN PRN Reason: Itching Docusate Sodium (Colace) 100 mg PO BID PRN PRN Reason: Constipation Last Admin: 05/11/19 07:42 Dose: 100 mg Ferrous Sulfate (Ferrous Sulfate) 325 mg PO WITHBREAKFAST [facility] Last Admin: 05/11/19 07:42 Dose: 325 mg Gabapentin (Neurontin) 300 mg PO TID [facility] Last Admin: 05/11/19 09:15 Dose: 300 mg Gemfibrozil (Lopid) 600 mg PO DAILY [facility] Last Admin: 05/11/19 09:08 Dose: 600 mg Glucosamine/Chondroitin (Glucosamine-Chondroitin 500-400 Capsule) 1 cap PO BID [facility] Last Admin: 05/11/19 09:09 Dose: 1 cap Hydroxyzine HCl (Atarax) 25 mg PO Q8H [facility] Last Admin: 05/11/19 02:33 Dose: 25 mg Lactated Ringer's (Ringers, Lactated) 1,000 mls @ 75 mls/hr IV ASDIRECTED [facility] Last Admin: 05/11/19 02:22 Dose: 75 mls/hr Levothyroxine Sodium (Levothyroxine) 25 mcg PO ACBREAKFAST [facility] Last Admin: 05/11/19 07:42 Dose: 25 mcg Magnesium Hydroxide (Milk Of Magnesia) 30 ml PO BID PRN PRN Reason: Constipation Methotrexate (Methotrexate) 20 mg PO WE [facility] Last Admin: 05/10/19 08:47 Dose: 20 mg Metoprolol Succinate (Toprol Xl) 25 mg PO DAILY [facility] Last Admin: 05/11/19 09:09 Dose: 25 mg Mometasone Furoate/Formoterol Fumar (Dulera 200-5 Mcg) 2 puff IH DAILY [facility] Last Admin: 05/11/19 09:10 Dose: 2 puff Morphine Sulfate (Morphine) 2 mg IVPUSH Q2H PRN PRN Reason: Breakthrough Pain Last Admin: 05/11/19 07:39 Dose: 2 mg Multivitamins (Total B With C) 1 each PO DAILY [facility] Last Admin: 05/11/19 09:09 Dose: 1 each Naloxone HCl (Narcan) 0.1 mg IVPUSH ONETIME PRN PRN Reason: Oversedation Nicotine (Habitrol) 21 mg TOP DAILY [facility] Last Admin: 05/11/19 09:11 Dose: 21 mg Ondansetron HCl (Zofran) 4 mg IVPUSH Q4H PRN PRN Reason: Nausea/Vomiting Last Admin: 05/11/19 07:39 Dose: 4 mg Oxycodone/Acetaminophen (Percocet 325-5 Mg) 2 tab PO Q4H PRN PRN Reason: Pain (moderate 4-6) Last Admin: 05/11/19 05:59 Dose: 2 tab Pantoprazole Sodium (Protonix) 40 mg PO DAILY [facility] Last Admin: 05/11/19 09:09 Dose: 40 mg Quetiapine Fumarate (Seroquel) 100 mg PO TID [facility] Last Admin: 05/11/19 09:10 Dose: 100 mg Ropinirole HCl (Requip) 1 mg PO BEDTIME [facility] Last Admin: 05/10/19 21:40 Dose: 1 mg Senna (Senna) 8.6 mg PO BID PRN PRN Reason: Constipation Sertraline HCl (Zoloft) 200 mg PO DAILY [facility] Last Admin: 05/11/19 09:08 Dose: 200 mg Sodium Chloride (Saline Flush) 10 ml FLUSH ASDIRECTED PRN PRN Reason: Keep Vein Open Last Admin: 05/10/19 11:25 Dose: 10 ml Sodium Chloride (Saline Flush) 10 ml FLUSH ASDIRECTED PRN PRN Reason: Keep Vein Open Tiotropium [place] (Spiriva Handihaler) 0 mcg INH DAILY [facility] Last Admin: 05/11/19 09:15 Dose: 1 cap Tramadol HCl (Ultram) 100 mg PO Q6H PRN PRN Reason: Pain (mild 1-3) Last Admin: 05/10/19 02:06 Dose: 100 mg Triamcinolone Acetonide (Kenalog-40) 60 mg IM ONETIME ONE Stop: 05/11/19 09:23 Zolpidem Tartrate (Ambien) 5 mg PO BEDTIME PRN PRN Reason: Sleep Last Admin: 05/10/19 21:42 Dose: 5 mg Discontinued Medications Acetaminophen (Tylenol Extra Strength) 1,000 mg PO ONETIME ONE Stop: 01/21/20 07:16 Last Admin: 05/09/19 08:36 Dose: 1,000 mg Cefazolin Sodium (Ancef) 1 gm IVPUSH ONETIME ONE Stop: 05/09/19 09:01 Last Admin: 05/09/19 08:49 Dose: 1 gm Ropivacaine 49.25 ml/Ketorolac Tromethamine 30 mg/Epinephrine HCl 0.5 mg/ Clonidine HCl 80 mcg/ Sodium Chloride 48.45 ml 0 ml INJECT ASDIRECTED ONE Stop: 05/09/19 09:01 Last Admin: 05/09/19 11:42 Dose: 100 syringe Tranexamic Acid 3,000 mg/ (Sodium Chloride 100 ml) 0 mg IRR ONETIME ONE Stop: 05/09/19 09:01 Last Admin: 05/09/19 11:44 Dose: 100 irr Diazepam (Valium) 5 mg IVPUSH Q6H PRN PRN Reason: Spasms Gabapentin (Neurontin) 300 mg PO ONETIME ONE Stop: 05/09/19 07:16 Last Admin: 05/09/19 08:36 Dose: 300 mg Hydroxyzine Pamoate (Vistaril) 25 mg PO Q8H [facility] Last Admin: 05/10/19 12:44 Dose: Not Given Lactated Ringer's (Ringers, Lactated) 1,000 mls @ 125 mls/hr IV ASDIRECTED [facility] Last Admin: 05/09/19 19:02 Dose: 125 mls/hr Lactated Ringer's (Ringers, Lactated) 1,000 mls @ 125 mls/hr IV ASDIRECTED [facility] Last Infusion: 05/10/19 11:13 Dose: Infused Lactated Ringer's (Ringers, Lactated) 500 mls @ 250 mls/hr IV BOLUS [facility] Scopolamine (Transderm-Scop) 1.5 mg TRDERM ONETIME ONE Stop: 05/09/19 07:16 Last Admin: 05/09/19 08:36 Dose: 1.5 mg Vancomycin HCl (Vancomycin) 1 gm .XX .STK-MED ONE Stop: 05/09/19 09:59 Last Admin: 05/09/19 09:58 Dose: 1 gm - Exam General: Alert, Oriented, Cooperative Lungs: Clear to Auscultation, Normal Respiratory Effort. No: Crackles, Rales, Rhonchi Cardiovascular: Regular Rate, Regular Rhythm, No Murmurs Sepsis Event Note - Evaluation Sepsis Screening Result: No Definite Risk - Focused Exam Vital Signs: Vital Signs Temp Pulse Pulse Resp BP BP Pulse Ox 05/11/19 09:09 103 H 132/82 05/11/19 07:43 98.4 F 103 H 20 132/82 98 05/10/19 23:30 98.5 F 100 18 111/70 98 Date Exam was Performed: 05/11/19 Time Exam was Performed: 09:23 - Problem List & Annotations (1) S/P total knee arthroplasty SNOMED Code(s): 3747458071601, 446950273, 8001570560848 Code(s): Z96.659 - PRESENCE OF UNSPECIFIED ARTIFICIAL KNEE JOINT Status: Acute Priority: High Current Visit: Yes Onset Date: ~05/09/19 Qualifiers: Laterality: left Qualified Code(s): Z96.652 - Presence of left artificial knee joint (2) Atrial fibrillation SNOMED Code(s): 24140214 Code(s): I48.91 - UNSPECIFIED ATRIAL FIBRILLATION Status: Acute Current Visit: Yes (3) Hypertension SNOMED Code(s): 11122805 Code(s): I10 - ESSENTIAL (PRIMARY) HYPERTENSION Status: Acute Current Visit: Yes (4) History of alcohol dependence SNOMED Code(s): 259243172 Code(s): F10.21 - ALCOHOL DEPENDENCE, IN REMISSION Status: Acute Current Visit: Yes (5) Depression SNOMED Code(s): 36336892 Code(s): F32.9 - MAJOR DEPRESSIVE DISORDER, SINGLE EPISODE, UNSPECIFIED Status: Acute Current Visit: Yes (6) Asthma SNOMED Code(s): 876582084 Code(s): J45.909 - UNSPECIFIED ASTHMA, UNCOMPLICATED Status: Acute Current Visit: Yes (7) Bronchitis SNOMED Code(s): 38868445 Code(s): J40 - BRONCHITIS, NOT SPECIFIED ACUTE OR CHRONIC Status: Acute Current Visit: Yes - Problem List Review Problem List Initiated/Reviewed/Updated: Yes - My Orders Last 24 Hours: My Active Orders 05/11/19 09:20 Azithromycin [Zithromax] 500 mg PO ONETIME ONE 05/11/19 09:22 Triamcinolone Acetonide [Kenalog-40] 60 mg IM ONETIME ONE 05/12/19 09:00 Azithromycin [Zithromax] 250 mg PO DAILY - Plan Plan:: 1. Kenalog 60 mg IM. 2. Zithromax 500 mg today then 250 mg a day for 4 days. 3. Continue current care.
--- NOTE | 2019-05-11 09:56 | PCM.PN ---
- General Info Date of Service: 05/11/19 Admission Dx/Problem (Free Text): Patient states he feels little lightheaded this morning and nauseated. The nurse gave him some Zofran. He wants to lay down in the bed. He has a little cough that's persisting and now he has green phlegm. He has a history of COPD. He says when this happens he normally goes to the clinic as a shot of Kenalog and is better. Feels little short of breath and wheezing. no chest pain Functional Status: Reports: Pain Controlled, Tolerating Diet, Ambulating, Urinating - Review of Systems General: Reports: No Symptoms HEENT: Reports: No Symptoms Pulmonary: Reports: No Symptoms Cardiovascular: Reports: No Symptoms Gastrointestinal: Reports: No Symptoms Genitourinary: Reports: No Symptoms Musculoskeletal: Reports: No Symptoms, Leg Pain, Joint Pain, Joint Swelling Skin: Reports: No Symptoms Neurological: Reports: No Symptoms Psychiatric: Reports: No Symptoms - Patient Data Vitals - Most Recent: Last Vital Signs Temp 98.4 F 05/11/19 07:43 Pulse 103 H 05/11/19 09:09 Resp 20 05/11/19 07:43 BP 132/82 05/11/19 09:09 Pulse Ox 98 05/11/19 07:43 Weight - Most Recent: 154 lb 1.65 oz I&O - Last 24 Hours: Intake & Output 05/10/19 05/11/19 05/11/19 22:59 06:59 14:59 Intake Total 558 705 Output Total 1000 700 Balance -442 -700 705 Lab Results Last 24 Hours: Laboratory Results - last 24 hr 05/11/19 05/11/19 Range/Units 06:45 06:45 WBC 9.3 (4.5-12.0) X10-3/uL RBC 2.93 L (4.30-5.75) x10(6)uL Hgb 8.4 L (13.5-17.8) g/dL Hct 25.0 L (30.0-51.3) % MCV 85.4 (80-96) fL MCH 28.7 (27.7-33.6) pg MCHC 33.6 (32.2-35.4) g/dL RDW 17.5 H (11.5-15.5) % Plt Count 195 (125-369) X10(3)uL MPV 7.7 (7.4-10.4) fL Neut % (Auto) 81.8 (46-82) % Lymph % (Auto) 11.7 L (13-37) % [place] % (Auto) 4.7 (4-12) % Eos % (Auto) 2 (1.0-5.0) % Baso % (Auto) 0 (0-2) % Neut # (Auto) 7.7 (1.6-8.3) # Lymph # (Auto) 1.1 (0.6-5.0) # [place] # (Auto) 0.4 (0.0-1.3) # Eos # (Auto) 0.1 (0.0-0.8) # Baso # (Auto) 0.0 (0.0-0.2) # Sodium 141 (135-145) mmol/L Potassium 3.8 (3.5-5.3) mmol/L Chloride 107 (100-110) mmol/L Carbon Dioxide 25 (21-32) mmol/L BUN 8 (7-18) mg/dL Creatinine 0.7 (0.70-1.30) mg/dL Est Cr Clr Drug Dosing 115.36 mL/min Estimated GFR (MDRD) > 60 (>60) BUN/Creatinine Ratio 11.4 (9-20) Glucose 107 (80-116) mg/dL Calcium 8.5 L (8.6-10.2) mg/dL Total Bilirubin 0.6 (0.1-1.3) mg/dL AST 23 D (5-25) IU/L ALT 16 (12-36) U/L Alkaline Phosphatase 77 (56-112) IU/L Total Protein 6.5 (6.0-8.0) g/dL Albumin 3.0 L (3.5-5.2) g/dL Globulin 3.5 g/dL Albumin/Globulin Ratio 0.9 Med Orders - Current: Current Medications Acetaminophen (Tylenol Arthritis Pain) 650 mg PO QID [facility] Last Admin: 05/11/19 09:07 Dose: 650 mg Aspirin (Ecotrin) 325 mg PO DAILY [facility] Last Admin: 05/11/19 09:08 Dose: 325 mg Atomoxetine HCl (Strattera) 60 mg PO DAILY [facility] Last Admin: 05/11/19 09:08 Dose: 60 mg Bisacodyl (Dulcolax) 10 mg PO DAILY PRN PRN Reason: Constipation Cephalexin (Keflex) 500 mg PO TID [facility] Cholecalciferol (Vitamin D3) 100 mcg PO DAILY [facility] Last Admin: 05/11/19 09:09 Dose: 100 mcg Diazepam (Valium) 2 mg IVPUSH Q6H PRN PRN Reason: Agitation Diphenhydramine HCl (Benadryl) 25 mg IVPUSH Q4H PRN PRN Reason: Itching Docusate Sodium (Colace) 100 mg PO BID PRN PRN Reason: Constipation Last Admin: 05/11/19 07:42 Dose: 100 mg Ferrous Sulfate (Ferrous Sulfate) 325 mg PO WITHBREAKFAST [facility] Last Admin: 05/11/19 07:42 Dose: 325 mg Gabapentin (Neurontin) 300 mg PO TID [facility] Last Admin: 05/11/19 09:15 Dose: 300 mg Gemfibrozil (Lopid) 600 mg PO DAILY [facility] Last Admin: 05/11/19 09:08 Dose: 600 mg Glucosamine/Chondroitin (Glucosamine-Chondroitin 500-400 Capsule) 1 cap PO BID [facility] Last Admin: 05/11/19 09:09 Dose: 1 cap Hydroxyzine HCl (Atarax) 25 mg PO Q8H [facility] Last Admin: 05/11/19 02:33 Dose: 25 mg Lactated Ringer's (Ringers, Lactated) 1,000 mls @ 75 mls/hr IV ASDIRECTED [facility] Last Admin: 05/11/19 02:22 Dose: 75 mls/hr Levothyroxine Sodium (Levothyroxine) 25 mcg PO ACBREAKFAST [facility] Last Admin: 05/11/19 07:42 Dose: 25 mcg Magnesium Hydroxide (Milk Of Magnesia) 30 ml PO BID PRN PRN Reason: Constipation Methotrexate (Methotrexate) 20 mg PO WE [facility] Last Admin: 05/10/19 08:47 Dose: 20 mg Metoprolol Succinate (Toprol Xl) 25 mg PO DAILY [facility] Last Admin: 05/11/19 09:09 Dose: 25 mg Mometasone Furoate/Formoterol Fumar (Dulera 200-5 Mcg) 2 puff IH DAILY [facility] Last Admin: 05/11/19 09:10 Dose: 2 puff Morphine Sulfate (Morphine) 2 mg IVPUSH Q2H PRN PRN Reason: Breakthrough Pain Last Admin: 05/11/19 07:39 Dose: 2 mg Multivitamins (Total B With C) 1 each PO DAILY [facility] Last Admin: 05/11/19 09:09 Dose: 1 each Naloxone HCl (Narcan) 0.1 mg IVPUSH ONETIME PRN PRN Reason: Oversedation Nicotine (Habitrol) 21 mg TOP DAILY [facility] Last Admin: 05/11/19 09:11 Dose: 21 mg Ondansetron HCl (Zofran) 4 mg IVPUSH Q4H PRN PRN Reason: Nausea/Vomiting Last Admin: 05/11/19 07:39 Dose: 4 mg Oxycodone/Acetaminophen (Percocet 325-5 Mg) 2 tab PO Q4H PRN PRN Reason: Pain (moderate 4-6) Last Admin: 05/11/19 05:59 Dose: 2 tab Pantoprazole Sodium (Protonix) 40 mg PO DAILY [facility] Last Admin: 05/11/19 09:09 Dose: 40 mg Quetiapine Fumarate (Seroquel) 100 mg PO TID [facility] Last Admin: 05/11/19 09:10 Dose: 100 mg Ropinirole HCl (Requip) 1 mg PO BEDTIME [facility] Last Admin: 05/10/19 21:40 Dose: 1 mg Senna (Senna) 8.6 mg PO BID PRN PRN Reason: Constipation Sertraline HCl (Zoloft) 200 mg PO DAILY [facility] Last Admin: 05/11/19 09:08 Dose: 200 mg Sodium Chloride (Saline Flush) 10 ml FLUSH ASDIRECTED PRN PRN Reason: Keep Vein Open Last Admin: 05/10/19 11:25 Dose: 10 ml Sodium Chloride (Saline Flush) 10 ml FLUSH ASDIRECTED PRN PRN Reason: Keep Vein Open Tiotropium [place] (Spiriva Handihaler) 0 mcg INH DAILY [facility] Last Admin: 05/11/19 09:15 Dose: 1 cap Tramadol HCl (Ultram) 100 mg PO Q6H PRN PRN Reason: Pain (mild 1-3) Last Admin: 05/10/19 02:06 Dose: 100 mg Zolpidem Tartrate (Ambien) 5 mg PO BEDTIME PRN PRN Reason: Sleep Last Admin: 05/10/19 21:42 Dose: 5 mg Discontinued Medications Acetaminophen (Tylenol Extra Strength) 1,000 mg PO ONETIME ONE Stop: 05/09/19 07:16 Last Admin: 05/09/19 08:36 Dose: 1,000 mg Azithromycin (Zithromax) 500 mg PO ONETIME ONE Stop: 05/11/19 09:21 Cefazolin Sodium (Ancef) 1 gm IVPUSH ONETIME ONE Stop: 05/09/19 09:01 Last Admin: 05/09/19 08:49 Dose: 1 gm Ropivacaine 49.25 ml/Ketorolac Tromethamine 30 mg/Epinephrine HCl 0.5 mg/ Clonidine HCl 80 mcg/ Sodium Chloride 48.45 ml 0 ml INJECT ASDIRECTED ONE Stop: 05/09/19 09:01 Last Admin: 05/09/19 11:42 Dose: 100 syringe Tranexamic Acid 3,000 mg/ (Sodium Chloride 100 ml) 0 mg IRR ONETIME ONE Stop: 05/09/19 09:01 Last Admin: 05/09/19 11:44 Dose: 100 irr Diazepam (Valium) 5 mg IVPUSH Q6H PRN PRN Reason: Spasms Gabapentin (Neurontin) 300 mg PO ONETIME ONE Stop: 05/09/19 07:16 Last Admin: 05/09/19 08:36 Dose: 300 mg Hydroxyzine Pamoate (Vistaril) 25 mg PO Q8H [facility] Last Admin: 05/10/19 12:44 Dose: Not Given Lactated Ringer's (Ringers, Lactated) 1,000 mls @ 125 mls/hr IV ASDIRECTED [facility] Last Admin: 05/09/19 19:02 Dose: 125 mls/hr Lactated Ringer's (Ringers, Lactated) 1,000 mls @ 125 mls/hr IV ASDIRECTED [facility] Last Infusion: 05/10/19 11:13 Dose: Infused Lactated Ringer's (Ringers, Lactated) 500 mls @ 250 mls/hr IV BOLUS [facility] Scopolamine (Transderm-Scop) 1.5 mg TRDERM ONETIME ONE Stop: 05/09/19 07:16 Last Admin: 05/09/19 08:36 Dose: 1.5 mg Triamcinolone Acetonide (Kenalog-40) 60 mg IM ONETIME ONE Stop: 05/11/19 09:23 Vancomycin HCl (Vancomycin) 1 gm .XX .STK-MED ONE Stop: 05/09/19 09:59 Last Admin: 05/09/19 09:58 Dose: 1 gm - Exam General: Alert, Oriented, Cooperative, Mild Distress HEENT: Pupils Equal, Pupils Reactive, EOMI, Mucous Membr. Moist/[place] Neck: Supple, Trachea Midline Lungs: Normal Respiratory Effort GI/Abdominal Exam: No Distention Extremities: Joint Swelling, Leg Pain, Limited Range of Motion Peripheral Pulses: 2+: Dorsalis Pedis (L), Dorsalis Pedis (R) Skin: Warm, Dry, Intact Wound/Incisions: Healing Well, Dressing Dry and Intact, No Drainage Neurological: No New Focal Deficit Psy/Mental Status: Alert, Normal Affect, Normal Mood Sepsis Event Note - Evaluation Sepsis Screening Result: No Definite Risk - Focused Exam Vital Signs: Vital Signs Temp Pulse Pulse Resp BP BP Pulse Ox 05/11/19 09:09 103 H 132/82 05/11/19 07:43 98.4 F 103 H 20 132/82 98 05/10/19 23:30 98.5 F 100 18 111/70 98 Date Exam was Performed: 05/11/19 Time Exam was Performed: 09:52 - Problem List & Annotations (1) S/P total knee arthroplasty SNOMED Code(s): 0321142488801, 689882944, 2720529081194 Code(s): Z96.659 - PRESENCE OF UNSPECIFIED ARTIFICIAL KNEE JOINT Status: Acute Priority: High Current Visit: Yes Onset Date: ~05/09/19 Qualifiers: Laterality: left Qualified Code(s): Z96.652 - Presence of left artificial knee joint - Problem List Review Problem List Initiated/Reviewed/Updated: Yes - Plan Plan:: assessment: 53-year-old male postoperative day #2 status post left total knee arthroplasty Plan: pt/ot/pain control/dvt prophylaxis, kenalog and abx per medicine for copd plan to dc to swing bed in [place] tomorrow
[2019-05-11] MEDS: Cephalexin 500 MG Cap PO SCH ×3 (10:28→20:36)
[2019-05-11] MEDS: rOPINIRole 1 MG Tab PO SCH (20:36)
[2019-05-11] MEDS: Zolpidem 5 MG Tab PO PRN (20:40)
[2019-05-11] MEDS: Sodium Chloride 0.9% 10 ML Syringe FLUSH PRN (22:00)
[2019-05-11] MEDS: traMADol 50 MG Tab PO PRN (23:26)
[2019-05-11] MEDS ORDERED: Acetaminophen 325 MG Tab PO STA (23:49)
[2019-05-12] MEDS: hydrOXYzine HCl 25 MG Tab PO SCH (03:07)
[2019-05-12] MEDS: Acetaminophen/oxyCODONE 325-5 MG Tab PO PRN (03:07)
[2019-05-12] MEDS: Lactated Ringers 1,000 ML IV SCH (05:01)
[2019-05-12] MEDS: Levothyroxine 25 MCG Tab PO SCH (06:50)
[2019-05-12] MEDS: Ferrous Sulfate 325 MG Tab PO SCH (08:27)
[2019-05-12] MEDS: Aspirin 325 MG Tab.EC PO SCH (08:28)
[2019-05-12] MEDS: Formoterol/Mometasone 200-5 MCG 8.8 GM Inhaler IH SCH (08:28)
[2019-05-12] MEDS: Chondroitin/Glucosamine Cap PO SCH (08:29)
[2019-05-12] MEDS: Nicotine 21 MG/24 Hr Patch TOP SCH (08:29)
[2019-05-12] MEDS: Cephalexin 500 MG Cap PO SCH (08:30)
[2019-05-12] MEDS: Pantoprazole 40 MG Tab.CR PO SCH (08:31)
[2019-05-12] MEDS: Gemfibrozil 600 MG Tab PO SCH (08:31)
[2019-05-12] MEDS: Tiotropium Inhaler 18 MCG Inhalation Powder Cap Kit of 5 INH SCH (08:31)
[2019-05-12] MEDS: QUEtiapine 100 MG Tab PO SCH (08:31)
[2019-05-12] MEDS: Gabapentin 300 MG Cap PO SCH (08:31)
[2019-05-12] MEDS: Metoprolol Succinate 25 MG Tab.ER PO SCH (08:32)
[2019-05-12] MEDS: Vitamin B Complex with Vitamin C Tab PO SCH (08:33)
[2019-05-12] MEDS: Cholecalciferol (Vitamin D3) 25 MCG Tab PO SCH (08:33)
[2019-05-12] MEDS: Sertraline 100 MG Tab PO SCH (08:34)
[2019-05-12] MEDS: traMADol 50 MG Tab PO PRN (08:36)
[2019-05-12] MEDS ORDERED: Azithromycin 250 MG Tab PO SCH (09:00)
--- NOTE | 2019-05-12 11:27 | PCM.DCSUM1 ---
Discharge Summary - Hospital Course HPI Initial Comments: 53 yo male left knee primary oa s/p left tka Diagnosis: Stroke: No - Discharge Data Discharge Date: 05/12/19 Discharge Disposition: DC/Tfer to SNF 03 Condition: Good - Referral to Home Health Primary Care Physician: Anabella Lee MD - Discharge Diagnosis/Problem(s) (1) S/P total knee arthroplasty SNOMED Code(s): 5930505592783, [id number], [id number] ICD Code: Z96.659 - PRESENCE OF UNSPECIFIED ARTIFICIAL KNEE JOINT Status: Acute Priority: High Current Visit: Yes Onset Date: ~05/09/19 Qualifiers: Laterality: left Qualified Code(s): Z96.652 - Presence of left artificial knee joint - Patient Summary/Data Operative Procedure(s) Performed: left tka Complications: none Consults: Consultations 05/09/19 11:45 Consult to Physician [CONS] Routine Consulting Provider: Dipak Knox Call Completed to Consulting Physician: Yes Respiratory Care Assess and Treatment [CONS] Routine Comment: Physician Instructions: Post-op Pneumonia Prevention 05/09/19 15:00 OT Evaluation and Treatment [CONS] Routine Please Evaluate and Treat. OT Reason for Consult: Strengthening This query below is only for informational purposes and is not editable. Admission Diagnosis/Problem: Knee joint operation PT Evaluation and Treatment [CONS] Routine Please Evaluate and Treat. PT Reason for Consult: Strengthening This query below is only for informational purposes and is not editable. Admission Diagnosis/Problem: Knee joint operation Recommended Follow-up Testing/Procedures: follow up in [facility] 05/[address] Santizo - Patient Instructions Diet: Usual Diet as Tolerated Activity: As Tolerated, Full Weight Bearing, No Strenuous Activities Driving: Do Not Drive Showering/Bathing: May Shower Wound/Incision Care: Keep Operative Site/Wound Site Clean and Dry Wound/Incision, Other: remove aquacell wednesday, daily dressing thereafter Notify Provider of: Fever, Increased Pain, Swelling and Redness, Drainage, Nausea and/or Vomiting - Discharge Plan *PRESCRIPTION DRUG MONITORING PROGRAM REVIEWED*: Yes *COPY OF PRESCRIPTION DRUG MONITORING REPORT IN PATIENT BERNARDA: No Prescriptions/Med Rec: Acetaminophen/oxyCODONE [Percocet 325-5 MG] 1 tab PO Q6H PRN #56 tablet PRN Reason: PAIN Aspirin [Ecotrin EC] 325 mg PO DAILY #21 tab.ec Nicotine [Habitrol] 21 mg TOP DAILY 21 Days #21 patch Home Medications: Home Meds Budesonide/Formoterol Fumarate [Symbicort 160-4.5 Mcg Inhaler] 2 puff INH DAILY 05/08/19 [History] Cholecalciferol (Vitamin D3) [Vitamin D3] 4,000 unit PO DAILY 05/08/19 [History] Gemfibrozil [Lopid] 600 mg PO DAILY 05/08/19 [History] Glucosamine/Chondro Edge A [Glucosamine-Chondroitin Tab] 1 each PO BID 05/08/19 [ History] Levothyroxine 25 mcg PO ACBREAKFAST 05/08/19 [History] Methotrexate 20 mg PO WE 05/08/19 [History] Metoprolol Succinate [Toprol XL] 25 mg PO DAILY 05/08/19 [History] Nicotine [Nicoderm CQ] 42 mg TD DAILY 05/08/19 [History] Omeprazole 40 mg PO DAILY 05/08/19 [History] QUEtiapine [SEROquel] 100 mg PO TID 05/08/19 [History] Sertraline [Zoloft] 200 mg PO DAILY 05/08/19 [History] Tiotropium [Spiriva HandiHaler] 18 mcg INH DAILY 05/08/19 [History] Vitamin B Complex [B Complex] 1 each PO DAILY 05/08/19 [History] Zolpidem Tartrate [Ambien] 10 mg PO BEDTIME 05/08/19 [History] atoMOXetine [Strattera] 60 mg PO DAILY 05/08/19 [History] rOPINIRole [Requip] 1 mg PO BEDTIME 05/08/19 [History] Baclofen 10 mg PO TID 05/09/19 [History] Folic Acid 1 mg PO DAILY 05/09/19 [History] Acetaminophen/oxyCODONE [Percocet 325-5 MG] 1 tab PO Q6H PRN #56 tablet [Rx] Aspirin [Ecotrin EC] 325 mg PO DAILY #21 tab.ec 05/12/19 [Rx] Nicotine [Habitrol] 21 mg TOP DAILY 21 Days #21 patch 05/12/19 [Rx] Patient Handouts: Fall Prevention in Hospitals, Adult, Preventing Problems After Surgery, Deep Vein Thrombosis - Discharge Summary/Plan Comment DC Time >30 min.: Yes - General Info Date of Service: 05/12/19 Functional Status: Reports: Pain Controlled, Tolerating Diet, Ambulating, Urinating, Incentive Spirometry - Review of Systems General: Reports: No Symptoms HEENT: Reports: No Symptoms Pulmonary: Reports: No Symptoms Cardiovascular: Reports: No Symptoms Gastrointestinal: Reports: No Symptoms Genitourinary: Reports: No Symptoms Musculoskeletal: Reports: Leg Pain, Joint Pain, Joint Swelling Skin: Reports: No Symptoms Neurological: Reports: No Symptoms Psychiatric: Reports: No Symptoms - Patient Data Vitals - Most Recent: Last Vital Signs Temp 99.1 F 05/12/19 01:00 Pulse 103 H 05/12/19 08:32 Resp 16 05/11/19 23:45 BP 120/76 05/12/19 08:32 Pulse Ox 96 05/11/19 23:45 Weight - Most Recent: 154 lb 1.65 oz I&O - Last 24 hours: Intake & Output 05/11/19 05/12/19 05/12/19 22:59 06:59 14:59 Intake Total 1012 1216 Output Total 1310 1180 Balance -298 36 Lab Results - Last 24 hrs: Laboratory Results - last 24 hr 05/11/19 05/12/19 05/12/19 Range/Units 12:25 06:20 06:20 WBC 7.6 (4.5-12.0) X10-3/uL RBC 2.48 L (4.30-5.75) x10(6)uL Hgb 7.0 L (13.5-17.8) g/dL Hct 21.1 L* (30.0-51.3) % MCV 85.0 (80-96) fL MCH 28.1 (27.7-33.6) pg MCHC 33.1 (32.2-35.4) g/dL RDW 16.8 H (11.5-15.5) % Plt Count 163 (125-369) X10(3)uL MPV 8.2 (7.4-10.4) fL Neut % (Auto) 79.1 (46-82) % Lymph % (Auto) 16.3 (13-37) % Dane % (Auto) 3.2 L (4-12) % Eos % (Auto) 1 (1.0-5.0) % Baso % (Auto) 0 (0-2) % Neut # (Auto) 6.1 (1.6-8.3) # Lymph # (Auto) 1.2 (0.6-5.0) # Dane # (Auto) 0.2 (0.0-1.3) # Eos # (Auto) 0.1 (0.0-0.8) # Baso # (Auto) 0.0 (0.0-0.2) # Sodium 142 (135-145) mmol/L Potassium 3.6 (3.5-5.3) mmol/L Chloride 107 (100-110) mmol/L Carbon Dioxide 26 (21-32) mmol/L BUN 9 (7-18) mg/dL Creatinine 0.6 L (0.70-1.30) mg/dL Est Cr Clr Drug Dosing 134.58 mL/min Estimated GFR (MDRD) > 60 (>60) BUN/Creatinine Ratio 15.0 (9-20) Glucose 98 (80-116) mg/dL Calcium 8.4 L (8.6-10.2) mg/dL Total Bilirubin 0.4 (0.1-1.3) mg/dL AST 22 (5-25) IU/L ALT 17 (12-36) U/L Alkaline Phosphatase 65 (56-112) IU/L Troponin I < 0.017 L (<0.017-0.056) ng/mL Total Protein 6.2 (6.0-8.0) g/dL Albumin 2.6 L (3.5-5.2) g/dL Globulin 3.6 g/dL Albumin/Globulin Ratio 0.7 Med Orders - Current: Current Medications Aspirin (Ecotrin) 325 mg PO DAILY [facility] Last Admin: 05/12/19 08:28 Dose: 325 mg Atomoxetine HCl (Strattera) 60 mg PO DAILY [facility] Last Admin: 05/12/19 08:32 Dose: 60 mg Bisacodyl (Dulcolax) 10 mg PO DAILY PRN PRN Reason: Constipation Cephalexin (Keflex) 500 mg PO TID [facility] Last Admin: 05/12/19 08:30 Dose: 500 mg Cholecalciferol (Vitamin D3) 100 mcg PO DAILY [facility] Last Admin: 05/12/19 08:33 Dose: 100 mcg Diazepam (Valium) 2 mg IVPUSH Q6H PRN PRN Reason: Agitation Diphenhydramine HCl (Benadryl) 25 mg IVPUSH Q4H PRN PRN Reason: Itching Docusate Sodium (Colace) 100 mg PO BID PRN PRN Reason: Constipation Last Admin: 05/11/19 07:42 Dose: 100 mg Ferrous Sulfate (Ferrous Sulfate) 325 mg PO WITHBREAKFAST [facility] Last Admin: 05/12/19 08:27 Dose: 325 mg Gabapentin (Neurontin) 300 mg PO TID [facility] Last Admin: 05/12/19 08:31 Dose: Not Given Gemfibrozil (Lopid) 600 mg PO DAILY [facility] Last Admin: 05/12/19 08:31 Dose: 600 mg Glucosamine/Chondroitin (Glucosamine-Chondroitin 500-400 Capsule) 1 cap PO BID [facility] Last Admin: 05/12/19 08:29 Dose: 1 cap Hydroxyzine HCl (Atarax) 25 mg PO Q8H [facility] Last Admin: 05/12/19 03:07 Dose: 25 mg Levothyroxine Sodium (Levothyroxine) 25 mcg PO ACBREAKFAST [facility] Last Admin: 05/12/19 06:50 Dose: 25 mcg Magnesium Hydroxide (Milk Of Magnesia) 30 ml PO BID PRN PRN Reason: Constipation Methotrexate (Methotrexate) 20 mg PO WE [facility] Last Admin: 05/10/19 08:47 Dose: 20 mg Metoprolol Succinate (Toprol Xl) 25 mg PO DAILY [facility] Last Admin: 05/12/19 08:32 Dose: 25 mg Mometasone Furoate/Formoterol Fumar (Dulera 200-5 Mcg) 2 puff IH DAILY [facility] Last Admin: 05/12/19 08:28 Dose: 2 puff Morphine Sulfate (Morphine) 2 mg IVPUSH Q2H PRN PRN Reason: Breakthrough Pain Last Admin: 05/11/19 17:40 Dose: 2 mg Multivitamins (Total B With C) 1 each PO DAILY [facility] Last Admin: 05/12/19 08:33 Dose: 1 each Naloxone HCl (Narcan) 0.1 mg IVPUSH ONETIME PRN PRN Reason: Oversedation Nicotine (Habitrol) 21 mg TOP DAILY [facility] Last Admin: 05/12/19 08:29 Dose: 21 mg Ondansetron HCl (Zofran) 4 mg IVPUSH Q4H PRN PRN Reason: Nausea/Vomiting Last Admin: 05/11/19 07:39 Dose: 4 mg Oxycodone/Acetaminophen (Percocet 325-5 Mg) 2 tab PO Q6H PRN PRN Reason: PAIN Last Admin: 05/12/19 03:07 Dose: 2 tab Pantoprazole Sodium (Protonix) 40 mg PO DAILY [facility] Last Admin: 05/12/19 08:31 Dose: 40 mg Quetiapine Fumarate (Seroquel) 100 mg PO TID [facility] Last Admin: 05/12/19 08:31 Dose: 100 mg Ropinirole HCl (Requip) 1 mg PO BEDTIME [facility] Last Admin: 05/11/19 20:36 Dose: 1 mg Senna (Senna) 8.6 mg PO BID PRN PRN Reason: Constipation Sertraline HCl (Zoloft) 200 mg PO DAILY [facility] Last Admin: 05/12/19 08:34 Dose: 200 mg Sodium Chloride (Saline Flush) 10 ml FLUSH ASDIRECTED PRN PRN Reason: Keep Vein Open Last Admin: 05/11/19 22:00 Dose: 10 ml Sodium Chloride (Saline Flush) 10 ml FLUSH ASDIRECTED PRN PRN Reason: Keep Vein Open Tiotropium Roberts (Spiriva Handihaler) 0 mcg INH DAILY [facility] Last Admin: 05/12/19 08:31 Dose: Not Given Tramadol HCl (Ultram) 100 mg PO Q6H PRN PRN Reason: Pain (mild 1-3) Last Admin: 05/12/19 08:36 Dose: 100 mg Zolpidem Tartrate (Ambien) 5 mg PO BEDTIME PRN PRN Reason: Sleep Last Admin: 05/11/19 20:40 Dose: 5 mg Discontinued Medications Acetaminophen (Tylenol) 650 mg PO NOW STA Stop: 05/11/19 23:50 Last Admin: 05/12/19 00:02 Dose: 650 mg Acetaminophen (Tylenol Extra Strength) 1,000 mg PO ONETIME ONE Stop: 05/09/19 07:16 Last Admin: 05/09/19 08:36 Dose: 1,000 mg Acetaminophen (Tylenol Arthritis Pain) 650 mg PO QID [facility] Last Admin: 05/11/19 09:07 Dose: 650 mg Azithromycin (Zithromax) 500 mg PO ONETIME ONE Stop: 05/11/19 09:21 Last Admin: 05/11/19 11:37 Dose: Not Given Cefazolin Sodium (Ancef) 1 gm IVPUSH ONETIME ONE Stop: 05/09/19 09:01 Last Admin: 05/09/19 08:49 Dose: 1 gm Ropivacaine 49.25 ml/Ketorolac Tromethamine 30 mg/Epinephrine HCl 0.5 mg/ Clonidine HCl 80 mcg/ Sodium Chloride 48.45 ml 0 ml INJECT ASDIRECTED ONE Stop: 05/09/19 09:01 Last Admin: 05/09/19 11:42 Dose: 100 syringe Tranexamic Acid 3,000 mg/ (Sodium Chloride 100 ml) 0 mg IRR ONETIME ONE Stop: 05/09/19 09:01 Last Admin: 05/09/19 11:44 Dose: 100 irr Diazepam (Valium) 5 mg IVPUSH Q6H PRN PRN Reason: Spasms Gabapentin (Neurontin) 300 mg PO ONETIME ONE Stop: 05/09/19 07:16 Last Admin: 05/09/19 08:36 Dose: 300 mg Hydroxyzine Pamoate (Vistaril) 25 mg PO Q8H [facility] Last Admin: 05/10/19 12:44 Dose: Not Given Lactated Ringer's (Ringers, Lactated) 1,000 mls @ 125 mls/hr IV ASDIRECTED [facility] Last Admin: 05/09/19 19:02 Dose: 125 mls/hr Lactated Ringer's (Ringers, Lactated) 1,000 mls @ 125 mls/hr IV ASDIRECTED [facility] Last Infusion: 05/10/19 11:13 Dose: Infused Lactated Ringer's (Ringers, Lactated) 500 mls @ 250 mls/hr IV BOLUS NAOMY Lactated Ringer's (Ringers, Lactated) 1,000 mls @ 75 mls/hr IV ASDIRECTED [facility] Last Admin: 05/12/19 05:01 Dose: 75 mls/hr Oxycodone/Acetaminophen (Percocet 325-5 Mg) 2 tab PO Q4H PRN PRN Reason: Pain (moderate 4-6) Last Admin: 05/11/19 05:59 Dose: 2 tab Scopolamine (Transderm-Scop) 1.5 mg TRDERM ONETIME ONE Stop: 05/09/19 07:16 Last Admin: 05/09/19 08:36 Dose: 1.5 mg Triamcinolone Acetonide (Kenalog-40) 60 mg IM ONETIME ONE Stop: 05/11/19 09:23 Last Admin: 05/11/19 10:27 Dose: 60 mg Vancomycin HCl (Vancomycin) 1 gm .XX .STK-MED ONE Stop: 05/09/19 09:59 Last Admin: 05/09/19 09:58 Dose: 1 gm - Exam Quality Assessment: Reports: DVT Prophylaxis General: Reports: Alert, Oriented, Cooperative, No Acute Distress HEENT: Reports: Pupils Equal, Pupils Reactive, EOMI, Mucous Membr. Moist/[place] Neck: Reports: Supple, Trachea Midline Lungs: Reports: Normal Respiratory Effort GI/Abdominal Exam: No Distention Extremities: Joint Swelling, Leg Pain, Limited Range of Motion Skin: Reports: Warm, Dry, Intact Wound/Incisions: Reports: Healing Well, Dressing Dry and Intact, No Drainage Neurological: Reports: No New Focal Deficit Psy/Mental Status: Reports: Alert, Normal Affect, Normal Mood Discharge Operative/Procedures - Procedures Performed Operations: left tka
== END 2019-05-12 13:15 | DRG 554 ==
LOC: FB.SDS 07:15 → FB.MS 12:05
PROVIDERS: ADMIT Orthopaedic Surgery; ATTEND Orthopaedic Surgery
DX: M17.12 Unilateral primary osteoarthritis, left knee (principal); D62 Acute posthemorrhagic anemia; I10 Essential (primary) hypertension; Z79.899 Other long term (current) drug therapy; F10.21 Alcohol dependence, in remission; F32.9 Major depressive disorder, single episode, unspecified; J44.9 Chronic obstructive pulmonary disease, unspecified; J40 Bronchitis, not specified as acute or chronic; F60.3 Borderline personality disorder; F12.10 Cannabis abuse, uncomplicated; F17.210 Nicotine dependence, cigarettes, uncomplicated; K21.9 Gastro-esophageal reflux disease without esophagitis; M19.90 Unspecified osteoarthritis, unspecified site; Z79.890 Hormone replacement therapy; E83.39 Other disorders of phosphorus metabolism; E87.6 Hypokalemia; E83.42 Hypomagnesemia; Z79.51 Long term (current) use of inhaled steroids; F10.20 Alcohol dependence, uncomplicated; Z79.82 Long term (current) use of aspirin; E03.9 Hypothyroidism, unspecified; I48.91 Unspecified atrial fibrillation
CPT/HCPCS: 27487; 36415; 73560; 85610; 85730; 86850; 86900; 86901; 94150; A9270 ×3; C1713; C1776; J0171; J0690; J0735; J1885; J2795; J3370; J7050 ×4; J7120; 80053; 84484; 85025; 93005; 97110-GP; 97116-GP; 97161-GP; 97165-GO; J2250; J2270; J2370; J2405; J2704; J3301; J8610